=== PATIENT | male | born 1930 | race Caucasian/White ===

== ENCOUNTER 2016-02-27 13:07 | Emergency (ER) | payer MEDICARE ==
[2016-02-27] MEDS ORDERED: Lidocaine 1% 20 ML MDV ONE (13:49)
[2016-02-27] MEDS ORDERED: Clindamycin 150 MG CAP ONE (14:11)
--- NOTE | 2016-02-27 14:33 | ERRECORD ---
[facility] EMERGENCY RECORD HPI ABSCESS (23:03 JLOY) CHIEF COMPLAINT: Patient presents for evaluation of swelling, Patient presents for evaluation of pain, Patient presents for evaluation of Pt with a swelling on his back x 6 months. Increased size, redness, and pain x few days. HISTORIAN: History provided by patient, History provided by patient's family. LOCATION: Symptoms are localized. TIME COURSE: Gradual onset of symptoms, Symptoms are worsening. ASSOCIATED WITH: No associated chills, No associated drainage, No associated fever, No associated nausea, No associated proximal streaking, No associated warmth. COMPLICATING FACTORS: No complicating factors for wound healing. EXACERBATED BY: Patient's condition exacerbated by nothing. RELIEVED BY: Patient's condition relieved by nothing. TETANUS: Tetanus status up to date. ROS (23:03 JLOY) CONSTITUTIONAL: Historian denies chills, denies fever. GI: Historian denies nausea, denies vomiting. SKIN: Historian reports induration. PAST MEDICAL HISTORY MEDICAL HISTORY: Past medical history includes cardiac history, angina, Past medical history includes history of hypertension, which has been treated, Past medical history includes history of malignancy, primary site colon, treated with surgery, Notes: ARTHRITIS, Past medical history includes cardiac history, coronary artery disease, Past medical history includes history of hyperlipidemia, high cholesterol,. Past medical history includes cardiac history, angina, Past medical history includes history of hypertension, which has been treated, Past medical history includes history of malignancy, primary site colon, treated with surgery, Notes: ARTHRITIS, Past medical history includes cardiac history, coronary artery disease, Past medical history includes history of hyperlipidemia, high cholesterol,. (13:29 MCBE) MALE SURGICAL HISTORY: Surgical history of coronary artery bypass graft surgery 1999, COLON RESECTION, hernia repair x2. Defib (2009), Surgical history of coronary artery bypass graft surgery 1999, COLON RESECTION, hernia repair x2. Defib (2009), Surgical history of coronary artery bypass graft surgery 1999, COLON RESECTION, hernia repair x2. Defibrilator replaced 2015- Dr. Jean. (13:29 MCBE) SOCIAL HISTORY: Patient drinks socially, rarely, Patient denies drug use, Patient is a former tobacco user. (13:29 MCBE) NOTES: Nursing records reviewed, Agree with nursing records. (23:05 JLOY) KNOWN ALLERGIES penicillin G sodium &a-1R&a+25V*p+0X*y4434S*c202B*c15G*c2P*p-0X&a-25V&a+1R Name: Diaz Garcia : 1930 M85 MedRec: [id number] AcctNum: [id number] Prepared: Teresa Feb 27, 2016 23:10 by Interface Page 1 of 3 pMD [facility] EMERGENCY RECORD Penicillins (Unconfirmed) CURRENT MEDICATIONS (13:25 MCBE) Calcium 600: TABLET : Strength - 600 mg (1,500 mg) : ORAL Patient Dose: 1 tab(s) Oral once a day. Miralax: POWDER (GRAM) : Strength - 17 gram/dose : ORAL Patient Dose: 17 g Oral once a day. lisinopril: TABLET : Strength - 10 mg : ORAL Patient Dose: 10 mg Oral 2 times a day. finasteride: TABLET : Strength - 5 mg : ORAL Patient Dose: 5 mg Oral once a day. PARoxetine HCl: TABLET : Strength - 20 mg : ORAL Patient Dose: 20 mg Oral once a day. carvedilol: TABLET : Strength - 12.5 mg : ORAL Patient Dose: 6.25 mg Oral 2 times a day.1/2 TAB ORAL TWICE DAILY. simvastatin: TABLET : Strength - 40 mg : ORAL Patient Dose: 40 mg Oral once a day (in the evening).1/2 PILL IN PM. Lasix: TABLET : Strength - 40 mg : ORAL Patient Dose: 0.5 tab(s) Oral once a day (in the morning). Aspir-81: TABLET, DELAYED RELEASE (ENTERIC COATED) : Strength - 81 mg : ORAL Patient Dose: 1 tab(s) Oral once a day. VITAL SIGNS VITAL SIGNS: BP: 118/69, Pulse: 67, Resp: 18, Temp: 98.1 (Oral), Pain: 6, O2 sat: 99 on Room Air, Time: 02/27/2016 13:27. (13:27 MCBE) BP: 122/78, Pulse: 63, Resp: 18, Temp: 98.2 (Oral), Pain: 3, O2 sat: 98 on Room Air, Time: 02/27/2016 14:20. (14:20 MCBE) PHYSICAL EXAM (23:04 [facility]) CONSTITUTIONAL: Vital signs reviewed, Patient appears non toxic, Patient alert and oriented to person, place and time. RESPIRATORY CHEST: Respiratory exam included findings of no respiratory distress, Breath sounds clear, No wheezing, No rales, No rhonchi. CARDIOVASCULAR: Cardiovascular exam included findings of heart rate regular rate and rhythm, Heart sounds normal. BACK: Back exam included findings of, Large fluctuant mass right mid back. Mild erythema. Minimal TTP. No warmth. 3cm across. &a-1R&a+25V*p+0X*h3588H*c202B*c15G*c2P*p-0X&a-25V&a+1R Name: Diaz Garcia : 1930 85 MedRec: [id number] AcctNum: [id number] Prepared: Teresa Feb 27, 2016 23:10 by Interface Page 2 of 3 pMD [facility] EMERGENCY RECORD NEURO: [place] coma scale 15, Neuro exam findings include patient oriented to person, place and time, Speech normal. SKIN: Skin exam included findings of skin warm, dry, and normal in color. PSYCHIATRIC: Normal affect. MEDICATION ADMINISTRATION SUMMARY Drug Name: clindamycin HCl, Dose Ordered: 300 mg, Route: Oral, Status: Given, Time: 14:16 02/27/2016, Detailed record available in Medication Service section. PROBLEM LIST No recorded problems DIAGNOSIS (14:10 LAYNE) FINAL: PRIMARY: LOCALIZD SWELLING M[place] & LUMP TRUNK. PRESCRIPTION (14:08 LAYNE) clindamycin HCl: CAPSULE : 300 mg : ORAL : Quantity: 300 Unit: mg Route: ORAL Schedule: 3 times a day Dispense: 7 days May substitute. Refills: No Refills . NOTES: No Refills. DISPOSITION PATIENT: Disposition Type: Discharge, Disposition: *Discharge Home. (14:10 LAYNE) Patient left the department. (14:22 ANA) Lloyd: LAYNE=MD Ramirez, Malcom PEREZ=Fabi Joe &a-1R&a+25V*p+0X*b8082P*c202B*c15G*c2P*p-0X&a-25V&a+1R Name: Diaz Garcia : 1930 M MedRec: [id number] AcctNum: [id number] Prepared: Teresa Feb 27, 2016 23:10 by Interface Page 3 of 3 pMD MTDD
--- NOTE | 2016-02-27 14:38 | PICIS ---
[facility] EMERGENCY RECORD TRIAGE (WedFeb 27, 2016 13:24 MCBE) TRIAGE NOTES: patient reports having a boil for about 6 months. has been worsened in the past week or so. (WedFeb 27, 2016 13:24 MCBE) PATIENT: NAME: Diaz Garcia, AGE: 85, GENDER: male, : [id number], TIME OF GREET: WedFeb 27, 2016 13:08, PREFERRED LANGUAGE: Icelandic, ETHNICITY: Not or , ECODE BILLING MAP: [facility], SSN: [id number], Zip Code: [address], KG WEIGHT: 74.84, PHONE: , , , PERSON ID: [id number]. (WedFeb 27, 2016 13:24 MCBE) COMPLAINT: POSSIBLE BACK ABSCESS. (WedFeb 27, 2016 13:24 MCBE) ADMISSION: URGENCY: 4 Non Urgent, ADMISSION SOURCE: Home, TRANSPORT: CAR, BED: TRIAGE. (WedFeb 27, 2016 13:24 MCBE) IMMUNIZATIONS: Flu vaccine up to date, Tetanus immunization up to date, Pneumococcal vaccine up to date. (13:29 MCBE) SIRS SCORING: Heart Rate 55-109 (0), Temp range 96.8-101.1 (0), respiratory rate 12-24 (0), Mental Status altered: no (0), Infection or Suspected Infection: No. (13:29 MCBE) TRIAGE SCREENING: Patient denies suicidal ideation, Patient denies presence of domestic violence. (13:29 MCBE) PROVIDERS: TRIAGE NURSE: Fabi Joe. (WedFeb 27, 2016 13:24 MCBE) VITAL SIGNS: BP 118/69, Pulse 67, Resp 18, Temp 98.1, (Oral), Pain 6, O2 Sat 99, on Room Air, Time 02/27/2016 13:27. (13:27 MCBE) PREVIOUS VISIT ALLERGIES: Penicillins. (WedFeb 27, 2016 13:24 MCBE) Penicillins. (13:29 MCBE) KNOWN ALLERGIES penicillin G sodium Penicillins (Unconfirmed) CURRENT MEDICATIONS (13:25 MCBE) Calcium 600: TABLET : Strength - 600 mg (1,500 mg) : ORAL Patient Dose: 1 tab(s) Oral once a day. Miralax: POWDER (GRAM) : Strength - 17 gram/dose : ORAL Patient Dose: 17 g Oral once a day. lisinopril: TABLET : Strength - 10 mg : ORAL Patient Dose: 10 mg Oral 2 times a day. finasteride: TABLET : Strength - 5 mg : ORAL Patient Dose: 5 mg Oral once a day. PARoxetine HCl: TABLET : Strength - 20 mg : ORAL Patient Dose: 20 mg Oral once a day. carvedilol: &a-1R&a+25V*p+0X*j5720T*c202B*c15G*c2P*p-0X&a-25V&a+1R Name: Diaz Garcia : 1930 M85 MedRec: [id number] AcctNum: [id number] Prepared: [facility] Feb 27, 2016 23:10 by Interface Page 1 of 6 pMD [facility] EMERGENCY RECORD TABLET : Strength - 12.5 mg : ORAL Patient Dose: 6.25 mg Oral 2 times a day.1/2 TAB ORAL TWICE DAILY. simvastatin: TABLET : Strength - 40 mg : ORAL Patient Dose: 40 mg Oral once a day (in the evening).1/2 PILL IN PM. Lasix: TABLET : Strength - 40 mg : ORAL Patient Dose: 0.5 tab(s) Oral once a day (in the morning). Aspir-81: TABLET, DELAYED RELEASE (ENTERIC COATED) : Strength - 81 mg : ORAL Patient Dose: 1 tab(s) Oral once a day. VITAL SIGNS VITAL SIGNS: BP: 118/69, Pulse: 67, Resp: 18, Temp: 98.1 (Oral), Pain: 6, O2 sat: 99 on Room Air, Time: 02/27/2016 13:27. (13:27 MCBE) BP: 122/78, Pulse: 63, Resp: 18, Temp: 98.2 (Oral), Pain: 3, O2 sat: 98 on Room Air, Time: 02/27/2016 14:20. (14:20 MCBE) NURSING ASSESSMENT: SKIN (13:30 MCBE) CONSTITUTIONAL: Complex assessment performed, Patient arrives ambulatory, Gait steady, History obtained from patient, Patient appears comfortable, Patient cooperative, Patient alert, Oriented to person, place and time, Skin warm, Skin dry, Skin normal in color, Mucous membranes pink, Mucous membranes moist, Patient is well-groomed, Patient complains of BACK PAIN, REPORTS THAT SPOT ON BACK HAS BEEN THERE FOR ABOUT 6 MONTHS. HAS SEEN PCP FOR SPOT. PCP ADVISED TO MONITOR SPOT. PATIENT REPORTS THE SPOT HAS STARTED TO CAUSE PAIN AND DISCOMFORT. PAIN: constant, SITTING UP DECREASES THE PAIN. NONVERBAL PAIN: Non-Verbal pain assessment findings include: No non-verbal complaints while at rest (0), Non-Verbal complaints not present with movement (0), Facial Grimaces not present at rest (0), Facial grimaces not present with movement (0), Bracing not present at rest (0), Bracing not present with movement (0), Restlessness not present at rest (0), Restlessness not present with movement (0), Rubbing not present at rest (0), Rubbing not present with movement (0), Result: 0. SKIN: Skin assessment findings include skin warm, Skin dry, Skin normal in color, Inspection findings include: No pressure ulcer to the shoulder, Inspection findings include no pressure ulcer to the elbow, Inspection findings include no pressure ulcers to the hip, Inspection findings include no pressure ulcer to the sacrum, Inspection findings include no pressure ulcer to the heel, Inspection findings include no pressure ulcer, Inspection findings include no pressure ulcer, Inspection findings include redness, to LEFT-MID BACK, Inspection findings include signs of infection, to LEFT-MID BACK, Inspection findings &a-1R&a+25V*p+0X*o6586L*c202B*c15G*c2P*p-0X&a-25V&a+1R Name: Diaz Garcia : 1930 M85 MedRec: [id number] AcctNum: [id number] Prepared: Teresa Feb 27, 2016 23:10 by Interface Page 2 of 6 pMD [facility] EMERGENCY RECORD include swelling, to LEFT-MID BACK. NURSING PROCEDURE: DISCHARGE NOTE (14:20 MCBE) DISCHARGE: Patient discharged to home, ambulating with walker, family driving, accompanied by other family member, Summary of Care printed/ provided, Discharge instructions given to patient, Discharge instructions given to DAUGHTER, SON, Simple or moderate discharge teaching performed, by FABI MAXWELL, EXPLAINED DISCHARGE INSTRUCTIONS. INSTRUCTED TO RETURN IF S/S WORSEN. INSTRUCTED TO COMPLETE ALL ANITBIOTICS. INFORMED PATIENT PRESCRIPTION CAN BE FILLED AT ANY PHARMACY, Prescriptions given and instructions on side effects given, Name of prescription(s) given: CLINDAMYCIN, Above person(s) verbalized understanding of discharge instructions and follow-up care, Patient treated and evaluated by physician, Notes: REMINDED THAT PATIENT NEEDS TO RETURN ON WEDNESDAY TO FOLLOW-UP. BELONGINGS: Belongings and valuables with patient upon arrival to the Emergency Department include:, Belongings and valuables with patient at time of discharge include:, hat, jacket, pants, shirt, shoes, Belongings remain with patient, Valuables remain with patient. NURSING PROCEDURE: DRESSING (14:06 BE) PATIENT IDENTIFIER: Patient actively involved in identification process, Patient's identity verified by patient stating name, Patient's identity verified by patient stating date, Patient's identity verified by hospital ID bracelet. DRESSING: Dressing indicated to promote wound healing, Dressing indicated to prevent wound complications, Simple dressing, applied, Serosanguinous drainage present, small amount, to LEFT-MID BACK. NURSING PROCEDURE: INCISION AND DRAINAGE (14:00 BE) PATIENT IDENTIFIER: Patient actively involved in identification process, Patient's identity verified by patient stating name, Patient's identity verified by patient stating date, Patient's identity verified by hospital ID bracelet. I & D: Incision and drainage indicated to promote healing, Incision and drainage indicated for pain control, Incision and drainage performed, to LEFT MID-BACK, by Dr. GUZMÁN, small amount, of purulent fluid drained, Wound culture labeled in the presence of the patient and sent to lab, Simple dressing applied, using 4x4 dressing, paced with 1/2 inch iodoform packing. ORDER DETAILS Order Name: Culture & GS, Bacterial/Wound, Status: Active, Time: 14:09 02/27/2016, User: LAYNE, - Ordered for: MD Guzmán Joshua, - Entered by: MD Guzmán Joshua - Thu Feb 27, 2016 14:09, &a-1R&a+25V*p+0X*o0200E*c202B*c15G*c2P*p-0X&a-25V&a+1R Name: Diaz Garcia : 1930 M85 MedRec: [id number] AcctNum: [id number] Prepared: WedFeb 27, 2016 23:10 by Interface Page 3 of 6 pMD [facility] EMERGENCY RECORD - Quantity: 1. MEDICATION ADMINISTRATION SUMMARY Drug Name: clindamycin HCl, Dose Ordered: 300 mg, Route: Oral, Status: Given, Time: 14:16 02/27/2016, Detailed record available in Medication Service section. MEDICATION SERVICE (14:16 [facility]) clindamycin HCl: Order: clindamycin HCl - Dose: 300 mg : Oral Ordered by: Malcom Guzmán MD Entered by: Malcom Guzmán MD [facility] Feb 27, 2016 14:07 , Acknowledged by: William Mcpherson RN [facility] Feb 27, 2016 14:11 Documented as given by: William Mcpherson RN [facility] Feb 27, 2016 14:16 Patient, Medication, Dose, Route and Time verified prior to administration. Patient appears Awake and alert- acceptable, Correct patient, time, route, dose and medication confirmed prior to administration, Patient advised of actions and side-effects prior to administration, Allergies confirmed and medications reviewed prior to administration, Patient in position of comfort, Side rails up, Cart in lowest position, Family at bedside, Call light in reach. HPI ABSCESS (23:03 [facility]) CHIEF COMPLAINT: Patient presents for evaluation of swelling, Patient presents for evaluation of pain, Patient presents for evaluation of Pt with a swelling on his back x 6 months. Increased size, redness, and pain x few days. HISTORIAN: History provided by patient, History provided by patient's family. LOCATION: Symptoms are localized. TIME COURSE: Gradual onset of symptoms, Symptoms are worsening. ASSOCIATED WITH: No associated chills, No associated drainage, No associated fever, No associated nausea, No associated proximal streaking, No associated warmth. COMPLICATING FACTORS: No complicating factors for wound healing. EXACERBATED BY: Patient's condition exacerbated by nothing. RELIEVED BY: Patient's condition relieved by nothing. TETANUS: Tetanus status up to date. ROS (23:03 [facility]) CONSTITUTIONAL: Historian denies chills, denies fever. GI: Historian denies nausea, denies vomiting. SKIN: Historian reports induration. PAST MEDICAL HISTORY MEDICAL HISTORY: Past medical history includes cardiac history, angina, Past medical history includes history of hypertension, which has been treated, Past medical history includes &a-1R&a+25V*p+0X*x4427V*c202B*c15G*c2P*p-0X&a-25V&a+1R Name: Diaz Garcia : 1930 M85 MedRec: [id number] AcctNum: [id number] Prepared: Teresa Feb 27, 2016 23:10 by Interface Page 4 of 6 pMD [facility] EMERGENCY RECORD history of malignancy, primary site colon, treated with surgery, Notes: ARTHRITIS, Past medical history includes cardiac history, coronary artery disease, Past medical history includes history of hyperlipidemia, high cholesterol,. Past medical history includes cardiac history, angina, Past medical history includes history of hypertension, which has been treated, Past medical history includes history of malignancy, primary site colon, treated with surgery, Notes: ARTHRITIS, Past medical history includes cardiac history, coronary artery disease, Past medical history includes history of hyperlipidemia, high cholesterol,. (13:29 MCBE) MALE SURGICAL HISTORY: Surgical history of coronary artery bypass graft surgery 1999, COLON RESECTION, hernia repair x2. Defib (2009), Surgical history of coronary artery bypass graft surgery 1999, COLON RESECTION, hernia repair x2. Defib (2009), Surgical history of coronary artery bypass graft surgery 1999, COLON RESECTION, hernia repair x2. Defibrilator replaced 2015- Dr. Jean. (13:29 MCBE) SOCIAL HISTORY: Patient drinks socially, rarely, Patient denies drug use, Patient is a former tobacco user. (13:29 MCBE) NOTES: Nursing records reviewed, Agree with nursing records. (23:05 JL) PHYSICAL EXAM (23:04 JL) CONSTITUTIONAL: Vital signs reviewed, Patient appears non toxic, Patient alert and oriented to person, place and time. RESPIRATORY CHEST: Respiratory exam included findings of no respiratory distress, Breath sounds clear, No wheezing, No rales, No rhonchi. CARDIOVASCULAR: Cardiovascular exam included findings of heart rate regular rate and rhythm, Heart sounds normal. BACK: Back exam included findings of, Large fluctuant mass right mid back. Mild erythema. Minimal TTP. No warmth. 3cm across. NEURO: [place] coma scale 15, Neuro exam findings include patient oriented to person, place and time, Speech normal. SKIN: Skin exam included findings of skin warm, dry, and normal in color. PSYCHIATRIC: Normal affect. EVENTS TRANSFER: Triage to Emergency Triage. (WedFeb 27, 2016 13:24 MCBE) Emergency Triage to Emergency Room -03. (13:29 JPAR) Removed from Emergency Emergency Room -03. (14:22 BE) INCISION AND DRAINAGE (23:05 JLOY) TIMEOUT: Side and/or site verified, Patient identification confirmed, Sterile procedures observed. INCISION AND DRAINAGE: Verbal consent obtained, Incision and drainage indicated for cutaneous abscess, There are no &a-1R&a+25V*p+0X*l2163C*c202B*c15G*c2P*p-0X&a-25V&a+1R Name: Diaz Garcia : 1930 M85 MedRec: [id number] AcctNum: [id number] Prepared: WedFeb 27, 2016 23:10 by Interface Page 5 of 6 pMD [facility] EMERGENCY RECORD contraindications, 1% Lidocaine without epinephrine used, 8 mLs, Incision was made over area of fluctuance, Explored for loculations, Packed with sterile gauze, Drained pus, Amount (mLs) 5-10, After procedure, wound dressed, There were no complications, Tetanus status up to date, Patient tolerated the procedure well. PROBLEM LIST No recorded problems DIAGNOSIS (14:10 [facility]) FINAL: PRIMARY: LOCALIZD SWELLING M[place] & [place] TRUNK. DISPOSITION PATIENT: Disposition Type: Discharge, Disposition: *Discharge Home. (14:10 OY) Patient left the department. (14:22 BE) INSTRUCTION (14:10 [facility]) DISCHARGE: ABSCESS, I AND D. FOLLOWUP: Annabella LEGER, SHAHZAD, Internal Medicine, [address] [place] [id number], , Follow up with Primary Care Physician in 2-3 days. PRESCRIPTION (14:08 [facility]) clindamycin HCl: CAPSULE : 300 mg : ORAL : Quantity: 300 Unit: mg Route: ORAL Schedule: 3 times a day Dispense: 7 days May substitute. Refills: No Refills . NOTES: No Refills. IMAGING (14:22 [facility]) *DISCHARGE INSTRUCTIONS RECEIPT: Image captured from scanner. *SUPPLY CHARGE SHEET: Image captured from scanner. ADMIN (23:05 LAYNE) DIGITAL SIGNATURE: MD Guzmán Joshua. Lloyd: LAYNE=MD Guzmán Joshua JPAR=HANS Mcpherson Jason MCBE=Fabi Joe &a-1R&a+25V*p+0X*i0031V*c202B*c15G*c2P*p-0X&a-25V&a+1R Name: Diaz Garcia : 1930 M85 MedRec: [id number] AcctNum: [id number] Prepared: WedFeb 27, 2016 23:10 by Interface Page 6 of 6 pMD [facility] MEDICATION RECONCILIATION You were seen in the Emergency Department on: WedFeb 27, 2016 KNOWN ALLERGIES penicillin G sodium Penicillins (Unconfirmed) MEDICATIONS GIVEN WHILE IN THE EMERGENCY DEPARTMENT clindamycin HCl - Dose: 300 milligram(s) : Oral HOME MEDICATIONS CONTINUE PRESCRIBED Aspir-81 : TABLET, DELAYED RELEASE (ENTERIC COATED) : Strength - 81 mg : ORAL Continue as prescribed Patient had been takin tab(s) Oral once a day. Calcium 600 : TABLET : Strength - 600 mg (1,500 mg) : ORAL Continue as prescribed Patient had been takin tab(s) Oral once a day. carvedilol : TABLET : Strength - 12.5 mg : ORAL Continue as prescribed Patient had been takin.25 mg Oral 2 times a day. Comment: 1/2 TAB ORAL TWICE DAILY. finasteride : TABLET : Strength - 5 mg : ORAL Continue as prescribed Patient had been takin mg Oral once a day. Lasix : TABLET : Strength - 40 mg : ORAL Continue as prescribed Patient had been takin.5 tab(s) Oral once a day (in the morning). lisinopril : TABLET : Strength - 10 mg : ORAL Continue as prescribed Patient had been takin mg Oral 2 times a day. Miralax : POWDER (GRAM) : Strength - 17 gram/dose : ORAL Continue as prescribed Patient had been takin g Oral once a day. &a-1R&a+25V*p+0X*e9942T*c202B*c15G*c2P*p-0X&a-25V&a+1R Name: Diaz Garcia : 1930 85 MedRec: [id number] AcctNum: [id number] Prepared: WedFeb 27, 2016 23:10 by Interface pMD [facility] MEDICATION RECONCILIATION PARoxetine HCl : TABLET : Strength - 20 mg : ORAL Continue as prescribed Patient had been takin mg Oral once a day. simvastatin : TABLET : Strength - 40 mg : ORAL Continue as prescribed Patient had been takin mg Oral once a day (in the evening). Comment: 1/2 PILL IN PM. PRESCRIPTIONS (1) &a-1R&a+25V*p+0X*x1336N*c202B*c15G*c2P*p-0X&a-25V&a+1R Name: Diaz Garcia : 1930 [facility] [place]: [id number] AcctNum: [id number] Prepared: WedFeb 27, 2016 23:10 by Interface pMD [facility]
== END 2016-02-27 14:19 | disposition home or self-care (01) ==
LOC: NAV ERS 13:07
DX: R22.2 Localized swelling, mass and lump, trunk (principal); I10 Essential (primary) hypertension; I25.10 Atherosclerotic heart disease of native coronary artery without angina pectoris; E78.5 Hyperlipidemia, unspecified; E78.00 Pure hypercholesterolemia, unspecified
CPT/HCPCS: 10060; 87070; 87205; J2001

== ENCOUNTER 2016-02-29 07:47 | Emergency (ER) | payer MEDICARE ==
--- NOTE | 2016-02-29 08:09 | ERRECORD ---
[facility] EMERGENCY RECORD HPI WOUND CHECK (08:02 [facility]) CHIEF COMPLAINT: Patient presents for evaluation of back wound, abscess, closed with nothing, Wound is 2 days old, Patient presents for evaluation of Pt had a large abscess I&D on his back 2 days ago. Here for packing change. Pain and swelling improved. Small drainage. No fever. HISTORIAN: History provided by patient, History provided by patient's family. LOCATION: Symptoms are localized. TIME COURSE: Symptoms are improving. ASSOCIATED WITH: No associated chills, Associated with drainage, intermittent, No associated fever, No associated proximal streaking, No associated redness. EXACERBATED BY: Patient's condition exacerbated by nothing. RELIEVED BY: Patient's condition relieved by time. ROS (08:03 JLOY) CONSTITUTIONAL: Historian denies chills, denies fever. GI: Historian denies nausea, denies vomiting. SKIN: Historian denies cellulitis. PAST MEDICAL HISTORY MEDICAL HISTORY: Past medical history includes cardiac history, angina, Past medical history includes history of hypertension, which has been treated, Past medical history includes history of malignancy, primary site colon, treated with surgery, Notes: ARTHRITIS, Past medical history includes cardiac history, coronary artery disease, Past medical history includes history of hyperlipidemia, high cholesterol,. Past medical history includes cardiac history, angina, Past medical history includes history of hypertension, which has been treated, Past medical history includes history of malignancy, primary site colon, treated with surgery, Notes: ARTHRITIS, Past medical history includes cardiac history, coronary artery disease, Past medical history includes history of hyperlipidemia, high cholesterol,. (07:55 BE) MALE SURGICAL HISTORY: Surgical history of coronary artery bypass graft surgery 1999, COLON RESECTION, hernia repair x2. Defib (2009), Surgical history of coronary artery bypass graft surgery 1999, COLON RESECTION, hernia repair x2. Defib (2009), Surgical history of coronary artery bypass graft surgery 1999, COLON RESECTION, hernia repair x2. Defibrilator replaced 2016- Dr. Jean. (07:55 BE) SOCIAL HISTORY: Patient drinks socially, rarely, Patient denies drug use, Patient is a former tobacco user. (07:55 BE) NOTES: Nursing records reviewed, Agree with nursing records. (08:05 JLOY) KNOWN ALLERGIES penicillin G sodium Penicillins (Unconfirmed) &a-1R&a+25V*p+0X*v5424C*c202B*c15G*c2P*p-0X&a-25V&a+1R Name: Diaz Garcia : 1930 M86 MedRec: [id number] AcctNum: [id number] Prepared: Sat Feb 29, 2016 08:13 by Interface Page 1 of 3 pMD [facility] EMERGENCY RECORD CURRENT MEDICATIONS (07:51 [facility]) Calcium 600: TABLET : Strength - 600 mg (1,500 mg) : ORAL Patient Dose: 1 tab(s) Oral once a day. Miralax: POWDER (GRAM) : Strength - 17 gram/dose : ORAL Patient Dose: 17 g Oral once a day. lisinopril: TABLET : Strength - 10 mg : ORAL Patient Dose: 10 mg Oral 2 times a day. finasteride: TABLET : Strength - 5 mg : ORAL Patient Dose: 5 mg Oral once a day. PARoxetine HCl: TABLET : Strength - 20 mg : ORAL Patient Dose: 20 mg Oral once a day. carvedilol: TABLET : Strength - 12.5 mg : ORAL Patient Dose: 6.25 mg Oral 2 times a day.1/2 TAB ORAL TWICE DAILY. simvastatin: TABLET : Strength - 40 mg : ORAL Patient Dose: 40 mg Oral once a day (in the evening).1/2 PILL IN PM. Lasix: TABLET : Strength - 40 mg : ORAL Patient Dose: 0.5 tab(s) Oral once a day (in the morning). Aspir-81: TABLET, DELAYED RELEASE (ENTERIC COATED) : Strength - 81 mg : ORAL Patient Dose: 1 tab(s) Oral once a day. clindamycin HCl: CAPSULE : Strength - 300 mg : ORAL Patient Dose: 300 mg Oral 3 times a day. VITAL SIGNS (07:51 [facility]) VITAL SIGNS: BP: 121/68, Pulse: 75, Resp: 18, Temp: 96.0 (Oral), Pain: 5, O2 sat: 97 on Room Air, Time: 02/29/2016 07:51. PHYSICAL EXAM (08:03 [facility]) CONSTITUTIONAL: Vital signs reviewed, Patient appears non toxic, Patient alert and oriented to person, place and time. EYES: Eye exam included findings of eyelids normal to inspection, Pupils equally round and reactive to light, Conjunctiva normal. BACK: abscess s/p I&D and packing. Small serosanguinous drainage. Minimal induration. Nontender. Decreased erythema from 2 days ago. No warmth. NEURO: Duff coma scale 15, Neuro exam findings include patient oriented to person, place and time, Speech normal. SKIN: Skin exam included findings of skin warm, dry, and normal in color. &a-1R&a+25V*p+0X*b7487L*c202B*c15G*c2P*p-0X&a-25V&a+1R Name: Diaz Garcia : 1930 86 MedRec: [id number] AcctNum: [id number] Prepared: Sat Feb 29, 2016 08:13 by Interface Page 2 of 3 pMD [facility] EMERGENCY RECORD PSYCHIATRIC: Normal affect. PROBLEM LIST No recorded problems DIAGNOSIS (08:01 LAYNE) FINAL: PRIMARY: LOCALIZD SWELLING MASS & LUMP TRUNK. PRESCRIPTION No recorded prescriptions DISPOSITION PATIENT: Disposition Type: Discharge, Disposition: *Discharge Home. (08:01 LAYNE) Patient left the department. (08:13 JHOAN) Lloyd: LAYEN=MD Ramirez, Malcom STAPLES=HANS Mcpherson, William PEREZ=Fabi Joe &a-1R&a+25V*p+0X*t0402J*c202B*c15G*c2P*p-0X&a-25V&a+1R Name: Diaz Garcia : 1930 86 MedRec: [id number] AcctNum: [id number] Prepared: Sat Feb 29, 2016 08:13 by Interface Page 3 of 3 pMD MTDD
--- NOTE | 2016-02-29 08:15 | PICIS ---
[facility] EMERGENCY RECORD TRIAGE ([facility] [[email or web address] Feb 29, 2016 07:51 [facility]) TRIAGE NOTES: repacking of abscess on back. ([facility] [[email or web address] Feb 29, 2016 07:51 [facility]) PATIENT: NAME: Diaz Garcia, AGE: 86, GENDER: male, : [place] 1930, TIME OF GREET: Sat Feb 29, 2016 07:48, PREFERRED LANGUAGE: Austrian, ETHNICITY: Not or , ECODE BILLING MAP: [facility], SSN: [id number], Zip Code: [address], KG WEIGHT: 76.20, PHONE: , , , PERSON ID: [id number]. ([facility] [[email or web address] Feb 29, 2016 07:51 [facility]) COMPLAINT: ABSCESS REPACK. ([facility] [[email or web address] Feb 29, 2016 07:51 [facility]) ADMISSION: URGENCY: 4 Non Urgent, ADMISSION SOURCE: Home, TRANSPORT: CAR, BED: ER -04. ([facility] [[email or web address] Feb 29, 2016 07:51 [facility]) ASSESSMENT: Assessment: patient reports that abscess on back feels better after draining on . packing still in place. no drainage noted at this time. old dressing still applied from visit on . (07:55 [facility]) IMMUNIZATIONS: Flu vaccine up to date, Tetanus immunization up to date, Pneumococcal vaccine up to date. (07:55 [facility]) SIRS SCORING: Heart Rate 55-109 (0), Temp range 96.8-101.1 (0), respiratory rate 12-24 (0), Mental Status altered: no (0), Infection or Suspected Infection: No. (07:55 [facility]) TRIAGE SCREENING: Patient denies suicidal ideation, Patient denies presence of domestic violence. (07:55 [facility]) PROVIDERS: TRIAGE NURSE: Fabi Joe. ([facility] [[email or web address]] Feb 29, 2016 07:51 [facility]) VITAL SIGNS: BP 121/68, Pulse 75, Resp 18, Temp 96.0, (Oral), Pain 5, O2 Sat 97, on Room Air, Time 02/29/2016 07:51. (07:51 [facility]) PREVIOUS VISIT ALLERGIES: penicillin G sodium. (Sat Feb 29, 2016 07:51 [facility]) penicillin G sodium. (07:55 [facility]) KNOWN ALLERGIES penicillin G sodium Penicillins (Unconfirmed) CURRENT MEDICATIONS (07:51 [facility]) Calcium 600: TABLET : Strength - 600 mg (1,500 mg) : ORAL Patient Dose: 1 tab(s) Oral once a day. Miralax: POWDER (GRAM) : Strength - 17 gram/dose : ORAL Patient Dose: 17 g Oral once a day. lisinopril: TABLET : Strength - 10 mg : ORAL Patient Dose: 10 mg Oral 2 times a day. finasteride: TABLET : Strength - 5 mg : ORAL Patient Dose: 5 mg Oral once a day. PARoxetine HCl: &a-1R&a+25V*p+0X*q2477G*c202B*c15G*c2P*p-0X&a-25V&a+1R Name: Diaz Garcia : 1930 M86 MedRec: [id number] AcctNum: [id number] Prepared: Jerrod Feb 29, 2016 08:19 by Interface Page 1 of 5 pMD [facility] EMERGENCY RECORD TABLET : Strength - 20 mg : ORAL Patient Dose: 20 mg Oral once a day. carvedilol: TABLET : Strength - 12.5 mg : ORAL Patient Dose: 6.25 mg Oral 2 times a day.1/2 TAB ORAL TWICE DAILY. simvastatin: TABLET : Strength - 40 mg : ORAL Patient Dose: 40 mg Oral once a day (in the evening).1/2 PILL IN PM. Lasix: TABLET : Strength - 40 mg : ORAL Patient Dose: 0.5 tab(s) Oral once a day (in the morning). Aspir-81: TABLET, DELAYED RELEASE (ENTERIC COATED) : Strength - 81 mg : ORAL Patient Dose: 1 tab(s) Oral once a day. clindamycin HCl: CAPSULE : Strength - 300 mg : ORAL Patient Dose: 300 mg Oral 3 times a day. VITAL SIGNS (07:51 [facility]) VITAL SIGNS: BP: 121/68, Pulse: 75, Resp: 18, Temp: 96.0 (Oral), Pain: 5, O2 sat: 97 on Room Air, Time: 02/29/2016 07:51. NURSING ASSESSMENT: SKIN (08:00 [facility]) SKIN: Skin assessment findings include skin warm, Skin dry, Skin normal in color, Inspection findings include: No pressure ulcer to the shoulder, Inspection findings include no pressure ulcer to the elbow, Inspection findings include no pressure ulcers to the hip, Inspection findings include no pressure ulcer to the sacrum, Inspection findings include no pressure ulcer to the heel, Inspection findings include no pressure ulcer, Inspection findings include no pressure ulcer, Inspection findings include redness, to left mid back, Inspection findings include signs of infection, Notes: abscess is healing appropriately. NURSING PROCEDURE: DISCHARGE NOTE (08:08 JPAR) DISCHARGE: Patient discharged to home, ambulating with walker, family driving, accompanied by other family member, Summary of Care printed/ provided, Patient requested and was provided an electronic copy of Discharge Instructions, Transition record given to patient, Discharge instructions given to patient, Discharge instructions given to Daughter, Simple or moderate discharge teaching performed, Follow up with Dr. Leger this week for repacking., Medication reconciliation form given, Above person(s) verbalized understanding of discharge instructions and follow-up care, Patient treated and evaluated by physician. BELONGINGS: Belongings and valuables with patient at time of discharge include:, Belongings remain with patient, Valuables remain with patient. &a-1R&a+25V*p+0X*i4371C*c202B*c15G*c2P*p-0X&a-25V&a+1R Name: Diaz Garcia : 1930 M86 MedRec: [id number] AcctNum: [id number] Prepared: Sat Feb 29, 2016 08:19 by Interface Page 2 of 5 pMD [facility] EMERGENCY RECORD SAFETY: Side rails up, Cart/Stretcher in lowest position, Family at bedside, Call light within reach, Hospital ID band on. NURSING PROCEDURE: WOUND CARE (08:00 JPAR) PATIENT IDENTIFIER: Patient actively involved in identification process, Patient's identity verified by patient stating name, Patient's identity verified by patient stating date, Patient's identity verified by hospital ID bracelet, Patient's identity verified by family member. TIMEOUT: Prior to procedure, correct patient verified by, Correct procedure verified, Correct site verified, Correct equipment utilized, Timeout not performed due to emergent nature of procedure. WOUND CARE: Wound care indicated for wound debridement and cleansing, Wound care indicated for preparing wound for repair, Wound care indicated to promote healing, Wound site: Middle back, Last tetanus shot received less than 5 years ago. FOLLOW-UP: After procedure, simple dressing applied, using 4x4 dressing, using telfa pad dressing, wrapped with 3 inch conform bandage, After procedure, on a scale 0-10 patient rates pain as 3, After procedure, capillary refill less than 2 seconds, After procedure, distal circulation intact, After procedure, distal motor intact, After procedure, distal sensation intact, After procedure, distal pulses present, Notes: MD repacks with 1 inch Iodorform, Telfa reinforced with 4x4's and secured with surgical tape. SAFETY: Side rails up, Cart/Stretcher in lowest position, Family at bedside, Call light within reach, Hospital ID band on. ORDER DETAILS Order Name: chart element #1, Status: Active, Time: 08:00 02/29/2016, User: System, - Ordered for: MD Guzmán Joshua, - Entered by: HANS Mcpherson Jason - Jerrod Feb 29, 2016 08:00, - Quantity: 1, Order Name: chart element #4, Status: Active, Time: 08:00 02/29/2016, User: System, - Ordered for: MD Guzmán Joshua, - Entered by: HANS Mcpherson Jason - Sat Feb 29, 2016 08:00, - Quantity: 1. HPI WOUND CHECK (08:02 [facility]) CHIEF COMPLAINT: Patient presents for evaluation of back wound, abscess, closed with nothing, Wound is 2 days old, Patient presents for evaluation of Pt had a large abscess I&D on his back 2 days ago. Here for packing change. Pain and swelling improved. Small drainage. No fever. HISTORIAN: History provided by patient, History provided by patient's family. LOCATION: Symptoms are localized. TIME COURSE: Symptoms are improving. ASSOCIATED WITH: No associated chills, Associated with &a-1R&a+25V*p+0X*y4333J*c202B*c15G*c2P*p-0X&a-25V&a+1R Name: Diaz Garcia : 1930 M86 MedRec: [id number] AcctNum: [id number] Prepared: Sat Feb 29, 2016 08:19 by Interface Page 3 of 5 pMD [facility] EMERGENCY RECORD drainage, intermittent, No associated fever, No associated proximal streaking, No associated redness. EXACERBATED BY: Patient's condition exacerbated by nothing. RELIEVED BY: Patient's condition relieved by time. ROS (08:03 [facility]) CONSTITUTIONAL: Historian denies chills, denies fever. GI: Historian denies nausea, denies vomiting. SKIN: Historian denies cellulitis. PAST MEDICAL HISTORY MEDICAL HISTORY: Past medical history includes cardiac history, angina, Past medical history includes history of hypertension, which has been treated, Past medical history includes history of malignancy, primary site colon, treated with surgery, Notes: ARTHRITIS, Past medical history includes cardiac history, coronary artery disease, Past medical history includes history of hyperlipidemia, high cholesterol,. Past medical history includes cardiac history, angina, Past medical history includes history of hypertension, which has been treated, Past medical history includes history of malignancy, primary site colon, treated with surgery, Notes: ARTHRITIS, Past medical history includes cardiac history, coronary artery disease, Past medical history includes history of hyperlipidemia, high cholesterol,. (07:55 BE) MALE SURGICAL HISTORY: Surgical history of coronary artery bypass graft surgery 1999, COLON RESECTION, hernia repair x2. Defib (2009), Surgical history of coronary artery bypass graft surgery 1999, COLON RESECTION, hernia repair x2. Defib (2009), Surgical history of coronary artery bypass graft surgery 1999, COLON RESECTION, hernia repair x2. Defibrilator replaced 2016- Dr. Jean. (07:55 BE) SOCIAL HISTORY: Patient drinks socially, rarely, Patient denies drug use, Patient is a former tobacco user. (07:55 BE) NOTES: Nursing records reviewed, Agree with nursing records. (08:05 [facility]) PHYSICAL EXAM (08:03 [facility]) CONSTITUTIONAL: Vital signs reviewed, Patient appears non toxic, Patient alert and oriented to person, place and time. EYES: Eye exam included findings of eyelids normal to inspection, Pupils equally round and reactive to light, Conjunctiva normal. BACK: abscess s/p I&D and packing. Small serosanguinous drainage. Minimal induration. Nontender. Decreased erythema from 2 days ago. No warmth. NEURO: Keven coma scale 15, Neuro exam findings include patient oriented to person, place and time, Speech normal. SKIN: Skin exam included findings of skin warm, dry, and normal in color. PSYCHIATRIC: Normal affect. &a-1R&a+25V*p+0X*g0579W*c202B*c15G*c2P*p-0X&a-25V&a+1R Name: Diaz Garcia : 1930 M86 MedRec: [id number] AcctNum: [id number] Prepared: Sat Feb 29, 2016 08:19 by Interface Page 4 of 5 pMD [facility] EMERGENCY RECORD EVENTS TRANSFER: Triage to Emergency Emergency Room -04. (Sat Feb 29, 2016 07:51 [facility]) Removed from Emergency Emergency Room -04. (08:13 JPAR) WOUND CHECK (08:05 JLOY) WOUND CHECK: Side and/or site verified, Patient identification confirmed, Sterile procedures observed, Verbal consent obtained, Wound check indicated for scheduled evaluation, Wound check to abscess performed, to back, Wound not closed, Wound age 2 days, Serosanguinous drainage present, Patient tolerated the procedure well, Packing removed and new packing placed. PROBLEM LIST No recorded problems DIAGNOSIS (08:01 JLOY) FINAL: PRIMARY: LOCALIZD SWELLING MASS & LUMP TRUNK. DISPOSITION PATIENT: Disposition Type: Discharge, Disposition: *Discharge Home. (08:01 JLOY) Patient left the department. (08:13 JPAR) INSTRUCTION (08:02 JLOY) DISCHARGE: ABSCESS, I AND D. FOLLOWUP: Annabella LEGER, SHAHZAD, Internal Medicine, [address] [place] [id number], , Follow up with Primary Care Physician in 2-3 days. SPECIAL: Follow up with Dr. Leger in the next few days to have the wound repacked. PRESCRIPTION No recorded prescriptions IMAGING *SUPPLY CHARGE SHEET: Image captured from scanner. (08:06 JPAR) *DISCHARGE INSTRUCTIONS RECEIPT: Image captured from scanner. (08:09 JPAR) ADMIN DIGITAL SIGNATURE: MD Guzmán Joshua. (08:05 JLOY) HANS Mcpherson Jason. (08:12 JPAR) Lloyd: LAYNE=MD Guzmán Joshua JPAR=HANS Mcpherson Jason MCBE=Fabi Joe &a-1R&a+25V*p+0X*j5880E*c202B*c15G*c2P*p-0X&a-25V&a+1R Name: Diaz Garcia : 1930 86 MedRec: [id number] AcctNum: [id number] Prepared: Sat Feb 29, 2016 08:19 by Interface Page 5 of 5 pMD [facility] MEDICATION RECONCILIATION You were seen in the Emergency Department on: Sat Feb 29, 2016 KNOWN ALLERGIES penicillin G sodium Penicillins (Unconfirmed) HOME MEDICATIONS CONTINUE PRESCRIBED Aspir-81 : TABLET, DELAYED RELEASE (ENTERIC COATED) : Strength - 81 mg : ORAL Continue as prescribed Patient had been takin tab(s) Oral once a day. Calcium 600 : TABLET : Strength - 600 mg (1,500 mg) : ORAL Continue as prescribed Patient had been takin tab(s) Oral once a day. carvedilol : TABLET : Strength - 12.5 mg : ORAL Continue as prescribed Patient had been takin.25 mg Oral 2 times a day. Comment: 1/2 TAB ORAL TWICE DAILY. clindamycin HCl : CAPSULE : Strength - 300 mg : ORAL Continue as prescribed Patient had been takin mg Oral 3 times a day. finasteride : TABLET : Strength - 5 mg : ORAL Continue as prescribed Patient had been takin mg Oral once a day. Lasix : TABLET : Strength - 40 mg : ORAL Continue as prescribed Patient had been takin.5 tab(s) Oral once a day (in the morning). lisinopril : TABLET : Strength - 10 mg : ORAL Continue as prescribed Patient had been takin mg Oral 2 times a day. Miralax : POWDER (GRAM) : Strength - 17 gram/dose : ORAL Continue as prescribed Patient had been takin g Oral once a day. &a-1R&a+25V*p+0X*h9891C*c202B*c15G*c2P*p-0X&a-25V&a+1R Name: Diaz Garcia : 1930 M86 MedRec: [id number] AcctNum: [id number] Prepared: Sat Feb 29, 2016 08:19 by Interface pMD [facility] - [facility] MEDICATION RECONCILIATION PARoxetine HCl : TABLET : Strength - 20 mg : ORAL Continue as prescribed Patient had been takin mg Oral once a day. simvastatin : TABLET : Strength - 40 mg : ORAL Continue as prescribed Patient had been takin mg Oral once a day (in the evening). Comment: 1/2 PILL IN PM. &a-1R&a+25V*p+0X*l5372N*c202B*c15G*c2P*p-0X&a-25V&a+1R Name: Diaz Garcai : 1930 M86 MedRec: [id number] AcctNum: [id number] Prepared: Sat Feb 29, 2016 08:19 by Interface Kain ESCOBAR
== END 2016-02-29 08:08 | disposition home or self-care (01) ==
LOC: NAV ERS 07:47
DX: R22.2 Localized swelling, mass and lump, trunk (principal); I25.119 Atherosclerotic heart disease of native coronary artery with unspecified angina pectoris; E78.5 Hyperlipidemia, unspecified; E78.00 Pure hypercholesterolemia, unspecified; I10 Essential (primary) hypertension; Z87.891 Personal history of nicotine dependence
CPT/HCPCS: 99282

== ENCOUNTER 2016-03-02 12:37 | Emergency (ER) | payer MEDICARE ==
--- NOTE | 2016-03-02 13:37 | ERRECORD ---
[facility] EMERGENCY RECORD HPI WOUND CHECK (13:43 PMYE) CHIEF COMPLAINT: Patient presents for evaluation of back wound, abscess. HISTORIAN: History provided by patient, History provided by patient's family. LOCATION: Symptoms are localized. SEVERITY: Maximum severity of symptoms moderate, Currently symptoms are mild. TIME COURSE: Symptoms are improving. ASSOCIATED WITH: No associated symptoms, 86 y/o male s/p I&D of abscess w/ recent change in abx to Clinda presents for wound recheck. Pt and staff note significant improvement in symptoms. EXACERBATED BY: Patient's condition exacerbated by nothing. RELIEVED BY: Patient's condition relieved by nothing. ROS (13:45 PMYE) CONSTITUTIONAL: Negative constitutional review of systems, Historian denies chills, denies fatigue, denies fever. EYES: Negative eye review of systems, Historian denies eye pain, denies eye redness. ENT: Negative ears, nose, throat review of systems, Historian denies dysphasia, denies otalgia, denies sore throat. CARDIOVASCULAR: Negative cardiovascular review of systems, Historian denies chest pain, denies dyspnea on exertion, denies syncope. RESPIRATORY: Negative respiratory review of systems, Historian denies cough, denies shortness of breath, denies wheezing. GI: Negative gastrointestinal review of systems, Historian denies abdominal pain, denies nausea, denies vomiting. MUSCULOSKELETAL: Negative musculoskeletal review of systems, Historian denies back pain, denies neck pain. SKIN: Negative skin review of systems, Historian denies rash. NEUROLOGIC: Negative neurologic review of systems, Historian denies confusion, denies headache, denies paresthesias. PSYCHIATRIC: Negative psychiatric review of systems, Historian denies alcohol abuse, denies drug abuse, denies homicidal ideation, denies suicidal ideation. PAST MEDICAL HISTORY (13:02 JPAR) MEDICAL HISTORY: Past medical history includes cardiac history, angina, Past medical history includes history of hypertension, which has been treated, Past medical history includes history of malignancy, primary site colon, treated with surgery, Notes: ARTHRITIS, Past medical history includes cardiac history, coronary artery disease, Past medical history includes history of hyperlipidemia, high cholesterol,. Past medical history includes cardiac history, angina, Past medical history includes history of hypertension, which has been treated, Past medical history includes history of malignancy, primary site colon, treated with surgery, Notes: ARTHRITIS, Past medical history includes cardiac history, coronary artery disease, Past medical history includes history of &a-1R&a+25V*p+0X*d5038T*c202B*c15G*c2P*p-0X&a-25V&a+1R Name: Diaz Garcia : 1930 M86 MedRec: [id number] AcctNum: [id number] Prepared: WedMar 02, 2016 18:07 by Interface Page 1 of 4 pMD [facility] EMERGENCY RECORD hyperlipidemia, high cholesterol,. MALE SURGICAL HISTORY: Surgical history of coronary artery bypass graft surgery 1999, COLON RESECTION, hernia repair x2. Defib (2009), Surgical history of coronary artery bypass graft surgery 1999, COLON RESECTION, hernia repair x2. Defib (2009), Surgical history of coronary artery bypass graft surgery 1999, COLON RESECTION, hernia repair x2. Defibrilator replaced 2015- Dr. Jean. SOCIAL HISTORY: Patient drinks socially, rarely, Patient denies drug use, Patient is a former tobacco user. KNOWN ALLERGIES penicillin G sodium (Unconfirmed) Penicillins CURRENT MEDICATIONS (12:54 JPAR) Calcium 600: TABLET : Strength - 600 mg (1,500 mg) : ORAL Patient Dose: 1 tab(s) Oral once a day. Miralax: POWDER (GRAM) : Strength - 17 gram/dose : ORAL Patient Dose: 17 g Oral once a day. lisinopril: TABLET : Strength - 10 mg : ORAL Patient Dose: 10 mg Oral 2 times a day. finasteride: TABLET : Strength - 5 mg : ORAL Patient Dose: 5 mg Oral once a day. PARoxetine HCl: TABLET : Strength - 20 mg : ORAL Patient Dose: 20 mg Oral once a day. carvedilol: TABLET : Strength - 12.5 mg : ORAL Patient Dose: 6.25 mg Oral 2 times a day.1/2 TAB ORAL TWICE DAILY. simvastatin: TABLET : Strength - 40 mg : ORAL Patient Dose: 40 mg Oral once a day (in the evening).1/2 PILL IN PM. Lasix: TABLET : Strength - 40 mg : ORAL Patient Dose: 0.5 tab(s) Oral once a day (in the morning). Aspir-81: TABLET, DELAYED RELEASE (ENTERIC COATED) : Strength - 81 mg : ORAL Patient Dose: 1 tab(s) Oral once a day. clindamycin HCl: CAPSULE : Strength - 300 mg : ORAL Patient Dose: 300 mg Oral 3 times a day. VITAL SIGNS (12:49 JPAR) &a-1R&a+25V*p+0X*z2353G*c202B*c15G*c2P*p-0X&a-25V&a+1R Name: Diaz Garcia : 1930 M86 MedRec: [id number] AcctNum: [id number] Prepared: WedMar 02, 2016 18:07 by Interface Page 2 of 4 pMD [facility] EMERGENCY RECORD VITAL SIGNS: BP: 144/70, Pulse: 62, Resp: 16, Temp: 98.5 (Oral), Pain: 0, O2 sat: 95, Time: 03/02/2016 12:49. PHYSICAL EXAM (13:45 PMYE) CONSTITUTIONAL: Vital signs reviewed, Patient afebrile, Pulse normal, Blood pressure normal, Respiratory rate normal. HEAD: Head exam normal, Head exam included findings of head atraumatic, normocephalic. EYES: Eye exam normal, Eye exam included findings of eyelids normal to inspection, Pupils equally round and reactive to light, Extraocular muscles intact. ENT: ENT exam normal, Pharynx exam normal, Uvula exam normal, Tonsil exam normal. NECK: Neck exam normal, Neck exam included findings of normal range of motion, Trachea midline. RESPIRATORY CHEST: Respiratory and chest exam normal, No wheezing, No rales, No rhonchi. CARDIOVASCULAR: Cardiovascular assessment normal, Cardiovascular exam included findings of heart rate regular rate and rhythm, Heart sounds normal. ABDOMEN MALE: Abdominal exam normal, Abdominal exam included findings of abdomen nontender, Bowel sounds normal. BACK: Back exam normal, lower back approx. 4 cm of erythema w/ no induration or fluctulance. Packing in place an when removed no purulence identified. NEURO: Neuro exam normal, Neuro exam findings include patient oriented to person, place and time, Elysian coma scale 15, Speech normal. SKIN: Skin exam included findings of skin warm, dry, and normal in color. PSYCHIATRIC: Psychiatric exam included findings of patient oriented to person place and time, Normal affect. DOCTOR NOTES (13:47 PMYE) TEXT: Abscess improving. Packing removed. Recommended warm soaks and continue abx. Dressing applied. As PCP f/u on Wed this week. PROBLEM LIST No recorded problems DIAGNOSIS (13:23 PMYE) FINAL: PRIMARY: abscess recheck. PRESCRIPTION No recorded prescriptions DISPOSITION PATIENT: Disposition Type: Discharge, Disposition: *Discharge Home. (13:25 PMYE) &a-1R&a+25V*p+0X*p7982K*c202B*c15G*c2P*p-0X&a-25V&a+1R Name: Diaz Garcia Bridgett : 1930 [facility] MedRec: [id number] AcctNum: [id number] Prepared: WedMar 02, 2016 18:07 by Interface Page 3 of 4 pMD [facility] EMERGENCY RECORD Patient left the department. (13:51 IRIS) Lloyd: JHOAN=HANS Mcpherson Jason PMYE=DO Martinez Paul &a-1R&a+25V*p+0X*s9930A*c202B*c15G*c2P*p-0X&a-25V&a+1R Name: Jose Diaz Bridgett : 1930 M86 MedRec: [id number] AcctNum: [id number] Prepared: WedMar 02, 2016 18:07 by Interface Page 4 of 4 pMD MTDD
--- NOTE | 2016-03-02 13:45 | PICIS ---
[facility] EMERGENCY RECORD TRIAGE (WedMar 02, 2016 12:53 JPAR) TRIAGE NOTES: Wound recheck, Apt. Wednesday with Indigo. (WedMar 02, 2016 12:53 JPAR) PATIENT: NAME: Diaz Garcia, AGE: 86, GENDER: male, : [id number], TIME OF GREET: WedMar 02, 2016 12:37, PREFERRED LANGUAGE: Angolan, ETHNICITY: Not or , ECODE BILLING MAP: [facility], SSN: [id number], Zip Code: [address], KG WEIGHT: 76.20, PHONE: , , , PERSON ID: [id number], PCP: Annabella LEGER LUKE. (WedMar 02, 2016 12:53 JPAR) COMPLAINT: WOUND CHECK. (WedMar 02, 2016 12:53 JPAR) ADMISSION: URGENCY: 5 Fast Track, ADMISSION SOURCE: Home, TRANSPORT: CAR, BED: TRIAGE. (WedMar 02, 2016 12:53 JPAR) ASSESSMENT: Assessment: Wound check, Symptoms began 5-6 days, Symptoms began 6 days ago. (13:02 JPAR) SIRS SCORING: Heart Rate 55-109 (0), Temp range 96.8-101.1 (0), respiratory rate 12-24 (0), Mental Status altered: no (0), Infection or Suspected Infection: No. (13:02 JPAR) TRIAGE SCREENING: Patient denies suicidal ideation, Patient denies presence of domestic violence. (13:02 JPAR) PROVIDERS: TRIAGE NURSE: William Mcpherson RN. (WedMar 02, 2016 12:53 JPAR) VITAL SIGNS: BP 144/70, Pulse 62, Resp 16, Temp 98.5, (Oral), Pain 0, O2 Sat 95, Time 03/02/2016 12:49. (12:49 JPAR) PREVIOUS VISIT ALLERGIES: penicillin G sodium. (WedMar 02, 2016 12:53 JPAR) penicillin G sodium. (13:02 JPAR) KNOWN ALLERGIES penicillin G sodium (Unconfirmed) Penicillins CURRENT MEDICATIONS (12:54 JPAR) Calcium 600: TABLET : Strength - 600 mg (1,500 mg) : ORAL Patient Dose: 1 tab(s) Oral once a day. Miralax: POWDER (GRAM) : Strength - 17 gram/dose : ORAL Patient Dose: 17 g Oral once a day. lisinopril: TABLET : Strength - 10 mg : ORAL Patient Dose: 10 mg Oral 2 times a day. finasteride: TABLET : Strength - 5 mg : ORAL Patient Dose: 5 mg Oral once a day. PARoxetine HCl: TABLET : Strength - 20 mg : ORAL Patient Dose: 20 mg Oral once a day. carvedilol: TABLET : Strength - 12.5 mg : ORAL &a-1R&a+25V*p+0X*q4493K*c202B*c15G*c2P*p-0X&a-25V&a+1R Name: Diaz Garcia : 1930 M86 MedRec: [id number] AcctNum: [id number] Prepared: WedMar 02, 2016 18:14 by Interface Page 1 of 5 pMD [facility] EMERGENCY RECORD Patient Dose: 6.25 mg Oral 2 times a day.1/2 TAB ORAL TWICE DAILY. simvastatin: TABLET : Strength - 40 mg : ORAL Patient Dose: 40 mg Oral once a day (in the evening).1/2 PILL IN PM. Lasix: TABLET : Strength - 40 mg : ORAL Patient Dose: 0.5 tab(s) Oral once a day (in the morning). Aspir-81: TABLET, DELAYED RELEASE (ENTERIC COATED) : Strength - 81 mg : ORAL Patient Dose: 1 tab(s) Oral once a day. clindamycin HCl: CAPSULE : Strength - 300 mg : ORAL Patient Dose: 300 mg Oral 3 times a day. VITAL SIGNS (12:49 JPAR) VITAL SIGNS: BP: 144/70, Pulse: 62, Resp: 16, Temp: 98.5 (Oral), Pain: 0, O2 sat: 95, Time: 03/02/2016 12:49. NURSING ASSESSMENT: SKIN (12:54 JPAR) CONSTITUTIONAL: Patient arrives ambulatory, Gait steady, History obtained from patient, Patient appears comfortable, Patient cooperative, Patient alert, Oriented to person, place and time, Skin warm, Skin dry, Skin normal in color, Mucous membranes pink, Mucous membranes moist, Patient complains of Wound recheck, middle back, I&D 4-5 days ago, was repacked in ER 2 days ago. SKIN: Skin assessment findings include skin warm, Skin dry, Skin normal in color, Inspection findings include redness, to Mid back around Abscess, Inspection findings include swelling, to mid back around abscess. SAFETY: Side rails up, Cart/Stretcher in lowest position, Family at bedside, Call light within reach, Hospital ID band on. NURSING PROCEDURE: NURSE NOTES (13:04 JPAR) NURSES NOTES: Notes: Same dressing that was put on 2 days ago was removed by RN and family advised to keep site cleaned and change dressing daily to prevent further infection and prevent wound from contamination. NURSING PROCEDURE: WOUND CARE (13:35 JPAR) PATIENT IDENTIFIER: Patient actively involved in identification process, Patient's identity verified by patient stating name, Patient's identity verified by patient stating date, Patient's identity verified by hospital ID bracelet, Patient's identity verified by family member. WOUND CARE: Wound care indicated to promote healing, Wound site: Mid back, Cause of wound: I& D 4 days ago/ Abscess, Wound cleansed with Betadine, Last tetanus shot received less than 5 years ago. FOLLOW-UP: After procedure, simple dressing applied, using 4x4 &a-1R&a+25V*p+0X*a5232R*c202B*c15G*c2P*p-0X&a-25V&a+1R Name: Diaz Garcia : 1930 M86 MedRec: [id number] AcctNum: [id number] Prepared: WedMar 02, 2016 18:14 by Interface Page 2 of 5 pMD [facility] EMERGENCY RECORD dressing, using telfa pad dressing. SAFETY: Side rails up, Cart/Stretcher in lowest position, Family at bedside, Call light within reach, Hospital ID band on. HPI WOUND CHECK (13:43 PMYE) CHIEF COMPLAINT: Patient presents for evaluation of back wound, abscess. HISTORIAN: History provided by patient, History provided by patient's family. LOCATION: Symptoms are localized. SEVERITY: Maximum severity of symptoms moderate, Currently symptoms are mild. TIME COURSE: Symptoms are improving. ASSOCIATED WITH: No associated symptoms, 86 y/o male s/p I&D of abscess w/ recent change in abx to Clinda presents for wound recheck. Pt and staff note significant improvement in symptoms. EXACERBATED BY: Patient's condition exacerbated by nothing. RELIEVED BY: Patient's condition relieved by nothing. ROS (13:45 PMYE) CONSTITUTIONAL: Negative constitutional review of systems, Historian denies chills, denies fatigue, denies fever. EYES: Negative eye review of systems, Historian denies eye pain, denies eye redness. ENT: Negative ears, nose, throat review of systems, Historian denies dysphasia, denies otalgia, denies sore throat. CARDIOVASCULAR: Negative cardiovascular review of systems, Historian denies chest pain, denies dyspnea on exertion, denies syncope. RESPIRATORY: Negative respiratory review of systems, Historian denies cough, denies shortness of breath, denies wheezing. GI: Negative gastrointestinal review of systems, Historian denies abdominal pain, denies nausea, denies vomiting. MUSCULOSKELETAL: Negative musculoskeletal review of systems, Historian denies back pain, denies neck pain. SKIN: Negative skin review of systems, Historian denies rash. NEUROLOGIC: Negative neurologic review of systems, Historian denies confusion, denies headache, denies paresthesias. PSYCHIATRIC: Negative psychiatric review of systems, Historian denies alcohol abuse, denies drug abuse, denies homicidal ideation, denies suicidal ideation. PAST MEDICAL HISTORY (13:02 JPAR) MEDICAL HISTORY: Past medical history includes cardiac history, angina, Past medical history includes history of hypertension, which has been treated, Past medical history includes history of malignancy, primary site colon, treated with surgery, Notes: ARTHRITIS, Past medical history includes cardiac history, coronary artery disease, Past medical history includes history of hyperlipidemia, high cholesterol,. Past medical history includes cardiac history, angina, Past medical history includes history of &a-1R&a+25V*p+0X*z8401O*c202B*c15G*c2P*p-0X&a-25V&a+1R Name: Diaz Garcia : 1930 M86 MedRec: [id number] AcctNum: [id number] Prepared: WedMar 02, 2016 18:14 by Interface Page 3 of 5 pMD [facility] EMERGENCY RECORD hypertension, which has been treated, Past medical history includes history of malignancy, primary site colon, treated with surgery, Notes: ARTHRITIS, Past medical history includes cardiac history, coronary artery disease, Past medical history includes history of hyperlipidemia, high cholesterol,. MALE SURGICAL HISTORY: Surgical history of coronary artery bypass graft surgery 1999, COLON RESECTION, hernia repair x2. Defib (2009), Surgical history of coronary artery bypass graft surgery 1999, COLON RESECTION, hernia repair x2. Defib (2009), Surgical history of coronary artery bypass graft surgery 1999, COLON RESECTION, hernia repair x2. Defibrilator replaced 2016- Dr. Jean. SOCIAL HISTORY: Patient drinks socially, rarely, Patient denies drug use, Patient is a former tobacco user. PHYSICAL EXAM (13:45 PMYE) CONSTITUTIONAL: Vital signs reviewed, Patient afebrile, Pulse normal, Blood pressure normal, Respiratory rate normal. HEAD: Head exam normal, Head exam included findings of head atraumatic, normocephalic. EYES: Eye exam normal, Eye exam included findings of eyelids normal to inspection, Pupils equally round and reactive to light, Extraocular muscles intact. ENT: ENT exam normal, Pharynx exam normal, Uvula exam normal, Tonsil exam normal. NECK: Neck exam normal, Neck exam included findings of normal range of motion, Trachea midline. RESPIRATORY CHEST: Respiratory and chest exam normal, No wheezing, No rales, No rhonchi. CARDIOVASCULAR: Cardiovascular assessment normal, Cardiovascular exam included findings of heart rate regular rate and rhythm, Heart sounds normal. ABDOMEN MALE: Abdominal exam normal, Abdominal exam included findings of abdomen nontender, Bowel sounds normal. BACK: Back exam normal, lower back approx. 4 cm of erythema w/ no induration or fluctulance. Packing in place an when removed no purulence identified. NEURO: Neuro exam normal, Neuro exam findings include patient oriented to person, place and time, Keven coma scale 15, Speech normal. SKIN: Skin exam included findings of skin warm, dry, and normal in color. PSYCHIATRIC: Psychiatric exam included findings of patient oriented to person place and time, Normal affect. EVENTS TRANSFER: Triage to Emergency Triage. (WedMar 02, 2016 12:53 JPAR) Emergency Triage to Emergency Room -04. (12:54 JPAR) Removed from Emergency Emergency Room -04. (13:51 JPAR) &a-1R&a+25V*p+0X*s3951M*c202B*c15G*c2P*p-0X&a-25V&a+1R Name: Diaz Garcia : 1930 M86 MedRec: [id number] AcctNum: [id number] Prepared: WedMar 02, 2016 18:14 by Interface Page 4 of 5 pMD [facility] EMERGENCY RECORD DOCTOR NOTES (13:47 PMYE) TEXT: Abscess improving. Packing removed. Recommended warm soaks and continue abx. Dressing applied. As PCP f/u on Wed this week. PROBLEM LIST No recorded problems DIAGNOSIS (13:23 PMYE) FINAL: PRIMARY: abscess recheck. DISPOSITION PATIENT: Disposition Type: Discharge, Disposition: *Discharge Home. (13:25 PMYE) Patient left the department. (13:51 JPAR) INSTRUCTION (13:24 PMYE) DISCHARGE: ABSCESS, PACKING REMOVAL. FOLLOWUP: Annabella LEGER, SHAHZAD, Internal Medicine, [address] [place] [id number], , Follow up with Primary Care Physician in 1-2 days. SPECIAL: Follow-up with your PCP. Continue your antibiotics as previously prescribed. PRESCRIPTION No recorded prescriptions IMAGING *DISCHARGE INSTRUCTIONS RECEIPT: Image captured from scanner. (13:48 JPAR) *SUPPLY CHARGE SHEET: Image captured from scanner. (13:49 JPAR) ADMIN DIGITAL SIGNATURE: DO Martinez Paul. (13:25 PMYE) HANS Mcpherson Jason. (13:50 JPAR) DO Martinez Paul. (17:59 PMYE) Lloyd: JPAR=HANS Mcpherson Jason PMYE=DO Martinez Paul &a-1R&a+25V*p+0X*x9147W*c202B*c15G*c2P*p-0X&a-25V&a+1R Name: Diaz Garcia : 1930 M86 MedRec: [id number] AcctNum: [id number] Prepared: WedMar 02, 2016 18:14 by Interface Page 5 of 5 pMD MTDD
== END 2016-03-02 13:44 | disposition home or self-care (01) ==
LOC: NAV ERS 12:37
DX: Z48.01 Encounter for change or removal of surgical wound dressing (principal); I10 Essential (primary) hypertension; I25.10 Atherosclerotic heart disease of native coronary artery without angina pectoris; E78.5 Hyperlipidemia, unspecified; E78.00 Pure hypercholesterolemia, unspecified; M19.90 Unspecified osteoarthritis, unspecified site; Z79.82 Long term (current) use of aspirin; Z79.899 Other long term (current) drug therapy
CPT/HCPCS: 99282

== ENCOUNTER 2016-04-01 17:41 | Inpatient (IN) | payer MEDICARE ==
[2016-04-01 17:57] VITALS: BMI 23.3
[2016-04-01] MEDS ORDERED: Loperamide HCl 2 MG CAP PO PRN (18:38)
[2016-04-01] MEDS ORDERED: Docusate Sodium 100 MG/10 ML UDCUP PO PRN (18:42)
[2016-04-01] MEDS ORDERED: Milk Of Magnesia 30 ML UDCUP PO PRN (18:42)
[2016-04-01] MEDS: Famotidine 20 MG TAB PO SCH (21:04)
[2016-04-01] MEDS: Carvedilol 6.25 MG TAB PO SCH (21:04)
[2016-04-01] MEDS: Lisinopril 10 MG TAB PO SCH (21:04)
[2016-04-01] MEDS: Acetaminophen 325 MG TAB PO PRN (21:05)
[2016-04-02] MEDS: Aspirin 325 MG TAB PO SCH (08:25)
[2016-04-02] MEDS: Atorvastatin Calcium 10 MG TAB PO SCH (08:25)
[2016-04-02] MEDS: Calcium Carbonate + Vit D 1 TAB PO SCH (08:26)
[2016-04-02] MEDS: Famotidine 20 MG TAB PO SCH ×2 (08:26→20:49)
[2016-04-02] MEDS: Finasteride 5 MG TAB PO SCH (08:26)
[2016-04-02] MEDS: Carvedilol 6.25 MG TAB PO SCH ×2 (08:26→20:49)
[2016-04-02] MEDS: PARoxetine 20 MG TAB PO SCH (08:27)
[2016-04-02] MEDS: Potassium Chloride 10 MEQ TAB PO SCH (08:27)
[2016-04-02] MEDS: Polyethylene Glycol 3350 17 GM Packet PO SCH (08:27)
[2016-04-02] MEDS: Acetaminophen 325 MG TAB PO PRN (08:27)
[2016-04-02 11:36] LABS: Anion Gap 10 mmol/L (10-20); BUN (Urea Nitrogen) 28 mg/dL (8.4-25.7); Calc. Creatinine Clearance 55 mL/min (70-130); Calcium 8.2 mg/dL (7.8-10.44); Carbon Dioxide 26 mmol/L (23-31); Chloride 109 mmol/L (98-107); Estimated GFR-MDRD 72
[2016-04-02] MEDS: HYDROcodone/Acetaminophen 5/325 mg Tablet PO PRN (20:49)
[2016-04-02] MEDS: Lisinopril 10 MG TAB PO SCH (20:50)
--- NOTE | 2016-04-03 02:33 | HP ---
DATE OF ADMISSION: 04/01/2016 HISTORY OF PRESENT ILLNESS: The patient is a very pleasant 86-year-old white male, living [place] for the last several years despite following problems of ischemic cardiomyopathy , instability with recurrent falls and a history of ventricular tachycardia, status post defibrillat or. He was admitted to the hospital this time because of the fall secondary to balance and inabilit y to call someone because of poor vision to finding his cell phone . He was brought into [facility] where he was found to have broken nose, no other fractures. Negative CT scan as he was unable to m aintain ADLs at home and is admitted to the skilled unit to continue therapy. The patient did have a problem with some acute on chronic kidney disease and has had his Lasix discontinue. He has had n o problems with shortness breath or edema or chest pain. He denies any headaches, generalized aches and pains other than his arms and shoulders. PAST MEDICAL HISTORY: Remarkable as mentioned above for hypertension, hyperlipidemia, cancer of the colon, recurrent constipation and diarrhea, significant anxiety and depression. PAST SURGICAL HISTORY: Positive for partial colectomy 8 years ago, hernia repair x2 and a defibrill ator placed in 1999. REVIEW OF SYSTEMS: HEENT: He denies any change in vision or hearing, but has gradually decreasing vision. He has gi technician nically decreasing hearing loss. He has no hoarseness or sore throat. PULMONARY: Denies cough, sputum production, pneumonia, asthma, tuberculosis. CARDIOVASCULAR: He has no history of chest pain recently, but has had a history of chest pain in th e past, found to have ischemic cardiomyopathy requiring a defibrillator because of low EF and ventri cular tachycardia. This is not discharged my knowledge. He also has a history of hypertension, hyp erlipidemia, benign prostatic hypertrophy, most recent echocardiogram was done 1 year ago and showed him to have ejection fraction of 15-20%. GASTROINTESTINAL: He denies nausea and vomiting. He had above-mentioned history of constipation co ntrolled with MiraLax. GENITOURINARY: He has mild decreased stream for which he takes finasteride 5 mg daily as he is unab le to tolerate agonist because of orthostatic hypotension. MUSCULOSKELETAL: He has chronic pain in his knees and ankles and has supposedly been using a walker , but did not using during this fall. CURRENT MEDICATIONS: On admission included atorvastatin 10 daily, carvedilol 6.25 twice daily, reny steride 5 daily, lisinopril 10 nightly, Paxil 20 nightly, Protonix 40 daily, MiraLax 17 gram every o ther day, potassium 10 mEq daily, aspirin 325 daily. PHYSICAL EXAMINATION: GENERAL: Shows him to be an elderly white male in no acute distress, oriented x3 and cooperative. VITAL SIGNS: Shows blood pressure of 157/74, respirations 20, pulse 58, afebrile. HEENT: Pupils are equal, round, and react to light and accommodation. Sclerae are anicteric. Conj unctivae are pale. Oral mucous membranes well hydrated. Multiple bruises over the nose, periorbita l area. Teeth are intact. NECK: Supple. There are no nodes or masses. JVP is not elevated. LUNGS: Clear. CARDIAC: Regular rhythm. PMI in the fifth intercostal space 1 cm left midclavicular. There is an AICD in place. ABDOMEN: Soft, nontender with no masses or organomegaly. SKIN/EXTREMITIES: Display no edema, clubbing or cyanosis. NEUROLOGIC: Intact. LABORATORIES: Today showed potassium of 4.1, creatinine 0.88, BUN 25. Off of Lasix, his BNP is 102 . Cardiac enzymes are normal. Hematocrit is 32, hemoglobin 10.9, white count 4900. ASSESSMENT AND PLAN: An 86-year-old white male with history of ischemic cardiomyopathy, low EF 20%, presents with recurrent falls and has had a contusion of his face and significant weakness and was found on the floor over 18 hours without moving. He is significantly weak at this time and has diff use aches and pains, but no specific chest pain or shortness of breath. He was only found to have a fracture of his nose. He is eating well. He did have his Lasix were discontinue because of acute renal failure and has been monitored closely with normal renal function at this time and no Edema wi th fluid restriction. PLAN: Continue PT, OT or speech therapy, did have some coughing after eating. Restart all medicati ons except furosemide and monitor basic metabolic profile.
--- NOTE | 2016-04-03 05:31 | PRG ---
DATE OF SERVICE: 04/03/2016 SUBJECTIVE: The patient is an 86-year-old white male living at home alone with a history of ischemi c cardiomyopathy and recurrent falls, who has fallen again and had been found on the floor after 12- 18 hours and is severely weak and he has had negative x-rays and is here for physical therapy. He h as been cooperating with therapy. He did get up and walk 5 feet yesterday with assistance. He did have some problems with orthostatic blood pressure with no symptoms. His blood pressure at this time shows a blood pressure 171/81, temperature 97.9, pulse 62, respirati ons 20, O2 sats 97%. Lungs are clear. Cardiac examination shows regular rhythm. Skin and extremit ies showed no edema. Laboratories did show that his creatinine was normal off of furosemide that was stopped during his l ast hospitalization. Neurological does show the patient has a slow, shuffling gait with no tremor. Does have some mask f acies. No confusion and is concern from PT he may have some Parkinson's symptoms and on no treatmen t. ASSESSMENT: Slowly improving deconditioning with recurrent falls, ischemic cardiomyopathy with orth ostasis, but no documented symptoms with therapy, possible Parkinson's disease. PLAN: 1. Continue to monitor vital signs off of furosemide. 2. Continue physical therapy. 3. Consider neurological consult and possible treatment for Parkinson's disease if symptoms should not improve.
[2016-04-03] MEDS: Finasteride 5 MG TAB PO SCH (08:15)
[2016-04-03] MEDS: PARoxetine 20 MG TAB PO SCH (08:15)
[2016-04-03] MEDS: Famotidine 20 MG TAB PO SCH ×2 (08:15→20:07)
[2016-04-03] MEDS: Potassium Chloride 10 MEQ TAB PO SCH (08:15)
[2016-04-03] MEDS: Carvedilol 6.25 MG TAB PO SCH ×2 (08:15→20:06)
[2016-04-03] MEDS: Atorvastatin Calcium 10 MG TAB PO SCH (08:15)
[2016-04-03] MEDS: Aspirin 325 MG TAB PO SCH (08:15)
[2016-04-03] MEDS: Calcium Carbonate + Vit D 1 TAB PO SCH (08:15)
[2016-04-03] MEDS: Lisinopril 10 MG TAB PO SCH (20:06)
[2016-04-03] MEDS: HYDROcodone/Acetaminophen 5/325 mg Tablet PO PRN (20:07)
[2016-04-04] MEDS: Polyethylene Glycol 3350 17 GM Packet PO SCH (09:24)
[2016-04-04] MEDS: Calcium Carbonate + Vit D 1 TAB PO SCH (09:25)
[2016-04-04] MEDS: Carvedilol 6.25 MG TAB PO SCH ×2 (09:25→20:49)
[2016-04-04] MEDS: Atorvastatin Calcium 10 MG TAB PO SCH (09:25)
[2016-04-04] MEDS: Famotidine 20 MG TAB PO SCH ×2 (09:25→20:49)
[2016-04-04] MEDS: Finasteride 5 MG TAB PO SCH (09:25)
[2016-04-04] MEDS: Aspirin 325 MG TAB PO SCH (09:25)
[2016-04-04] MEDS: PARoxetine 20 MG TAB PO SCH (09:25)
[2016-04-04] MEDS: Potassium Chloride 10 MEQ TAB PO SCH (09:26)
[2016-04-04] MEDS: HYDROcodone/Acetaminophen 5/325 mg Tablet PO PRN (20:49)
[2016-04-04] MEDS: Lisinopril 10 MG TAB PO SCH (20:49)
--- NOTE | 2016-04-05 05:35 | PRG ---
DATE OF SERVICE: 04/05/2016 SUBJECTIVE: The patient is resting well in bed, no complaints of shortness of breath, headache, diz ziness, eating well. Still very weak and complaining of pain in his face site of trauma. OBJECTIVE: Vital Signs: Shows his blood pressure is 155/75, pulse 53, temperature 95.1, respiratio ns 16, O2 sats 94%. HEENT: Face shows multiple contusions or ecchymoses. Lungs are clear. Cardia c examination shows regular rhythm. Abdomen is soft and nontender. Skin and extremities showed no edema. LABORATORY DATA: Sodium 141, potassium 4.3, chloride 109, bicarbonate 26, BUN 28, creatinine 0.99, glucose 121. ASSESSMENT: Resolving contusion of the face and fracture of the nose; stable ischemic cardiomyopath y; persistent severe deconditioning, slowly improving. PLAN: Continue physical therapy. Continue occupational therapy, await results of speech therapist. Continue to hold diuretic and monitor edema.
--- NOTE | 2016-04-05 06:21 | PRG ---
DATE OF SERVICE: 04/05/2016 SUBJECTIVE: The patient is resting, but awakens easily and has no complaints except for problems wi th his chronic decreased vision, soreness in his face, but has slept well. He is eating well, coope rating well with therapy, having no cough after eating. OBJECTIVE: Speech therapist who feels the patient is safe for all food, but does require 24-hour as sistance at home because of his deconditioning and weakness. Patient did cooperate with physical th erapy and able to walk 30 feet very slowly. He complaints of lightheadedness and dizziness, although stable vital signs. No orthostasis. Vital signs did show blood pressure 155/71 this morning, temp erature is 96.7, pulse 60, respirations 20, O2 sats 94%. Lungs are clear. Cardiac examination show s regular rhythm. Skin and extremities showed no edema. ASSESSMENT: 1. Slowly improving deconditioning, stable vital signs. No evidence of aspiration. 2. Resolving contusion of the face. 3. Stable ischemic cardiomyopathy. PLAN: Continue PT, OT, repeat base met profile in the a.m. Continue to monitor for fluid retention .
[2016-04-05] MEDS: Famotidine 20 MG TAB PO SCH ×2 (08:27→20:54)
[2016-04-05] MEDS: Aspirin 325 MG TAB PO SCH (08:28)
[2016-04-05] MEDS: Potassium Chloride 10 MEQ TAB PO SCH (08:28)
[2016-04-05] MEDS: PARoxetine 20 MG TAB PO SCH (08:28)
[2016-04-05] MEDS: Finasteride 5 MG TAB PO SCH (08:28)
[2016-04-05] MEDS: Carvedilol 6.25 MG TAB PO SCH ×2 (08:28→20:54)
[2016-04-05] MEDS: Calcium Carbonate + Vit D 1 TAB PO SCH (08:28)
[2016-04-05] MEDS: Atorvastatin Calcium 10 MG TAB PO SCH (08:28)
[2016-04-05] MEDS: Acetaminophen 325 MG TAB PO PRN (17:24)
[2016-04-05] MEDS: Lisinopril 10 MG TAB PO SCH (20:54)
[2016-04-05] MEDS: HYDROcodone/Acetaminophen 5/325 mg Tablet PO PRN (20:54)
[2016-04-06] MEDS: Polyethylene Glycol 3350 17 GM Packet PO SCH (09:07)
[2016-04-06] MEDS: Atorvastatin Calcium 10 MG TAB PO SCH (09:07)
[2016-04-06] MEDS: PARoxetine 20 MG TAB PO SCH (09:07)
[2016-04-06] MEDS: Potassium Chloride 10 MEQ TAB PO SCH (09:07)
[2016-04-06] MEDS: Aspirin 325 MG TAB PO SCH (09:07)
[2016-04-06] MEDS: Finasteride 5 MG TAB PO SCH (09:07)
[2016-04-06] MEDS: Famotidine 20 MG TAB PO SCH ×2 (09:08→20:33)
[2016-04-06] MEDS: Calcium Carbonate + Vit D 1 TAB PO SCH (09:08)
[2016-04-06] MEDS: Carvedilol 6.25 MG TAB PO SCH ×2 (09:08→20:33)
[2016-04-06] MEDS: Acetaminophen 325 MG TAB PO PRN (09:10)
[2016-04-06] MEDS: Lisinopril 10 MG TAB PO SCH (20:40)
[2016-04-07] MEDS: Acetaminophen 325 MG TAB PO PRN ×2 (03:06→09:08)
[2016-04-07] MEDS: Aspirin 325 MG TAB PO SCH (09:02)
[2016-04-07] MEDS: Carvedilol 6.25 MG TAB PO SCH ×2 (09:04→20:30)
[2016-04-07] MEDS: Calcium Carbonate + Vit D 1 TAB PO SCH (09:04)
[2016-04-07] MEDS: Finasteride 5 MG TAB PO SCH (09:07)
[2016-04-07] MEDS: Famotidine 20 MG TAB PO SCH ×2 (09:07→20:30)
[2016-04-07] MEDS: PARoxetine 20 MG TAB PO SCH (09:07)
[2016-04-07] MEDS: Potassium Chloride 10 MEQ TAB PO SCH (09:08)
[2016-04-07] MEDS: Atorvastatin Calcium 10 MG TAB PO SCH (09:10)
[2016-04-07 10:07] LABS: #Basophils 0.1 thou/uL (0.0-0.2); #Eosinphils 0.1 thou/uL (0.0-0.7); #Monocytes 0.3 thou/uL (0.11-0.59); #Neutrophils 3.7 thou/uL (1.40-6.50); %Basophils 1.2 % (0.0-1.0); %Eosinophils 2.6 % (0.0-10.0); %Lymphocytes 18.8 % (21.0-51.0); %Monocytes 6.3 % (0.0-10.0); Hematocrit 34.3 % (42.0-52.0); Mean Platelet Volume 6.2 fL (7.4-10.4); Red Blood Cell (RBC) Count 3.66 mill/uL (4.70-6.10); White Blood Cell (WBC) Count 5.2 thou/uL (4.8-10.8)
[2016-04-07 10:46] LABS: ALT (SGPT) 10 U/L (0-55); AST (SGOT) 12 U/L (5-34); Alkaline Phosphatase 69 U/L (40-150); Anion Gap 9 mmol/L (10-20); BUN (Urea Nitrogen) 33 mg/dL (8.4-25.7); Bilirubin, Total 0.7 mg/dL (0.2-1.2); Calc. Creatinine Clearance 54 mL/min (70-130); Calcium 8.2 mg/dL (7.8-10.44); Carbon Dioxide 24 mmol/L (23-31); Chloride 112 mmol/L (98-107); Estimated GFR-MDRD 71; Globulin 2.4 g/dL (2.4-3.5)
[2016-04-07] MEDS: HYDROcodone/Acetaminophen 5/325 mg Tablet PO PRN (20:30)
[2016-04-08] MEDS: PARoxetine 20 MG TAB PO SCH (09:34)
[2016-04-08] MEDS: Finasteride 5 MG TAB PO SCH (09:34)
[2016-04-08] MEDS: Calcium Carbonate + Vit D 1 TAB PO SCH (09:34)
[2016-04-08] MEDS: Famotidine 20 MG TAB PO SCH ×2 (09:34→20:31)
[2016-04-08] MEDS: Atorvastatin Calcium 10 MG TAB PO SCH (09:34)
[2016-04-08] MEDS: Polyethylene Glycol 3350 17 GM Packet PO SCH (09:35)
[2016-04-08] MEDS: Potassium Chloride 10 MEQ TAB PO SCH (09:35)
[2016-04-08] MEDS: Carvedilol 6.25 MG TAB PO SCH ×2 (09:35→20:31)
[2016-04-08] MEDS: Aspirin 325 MG TAB PO SCH (09:35)
--- NOTE | 2016-04-08 18:44 | PRG ---
MEDICAL PROGRESS NOTE DATE OF SERVICE: 04/06/2016 SUBJECTIVE: The patient is lying in the bed, very weak. States he feels better with minimal pain. No shortness of breath, but is unable to get out of bed without assistance. OBJECTIVE: VITALS SIGNS: His blood pressure is 110/60, temperature is 97.8, pulse 63, respirations 18 and O2 s ats 96%. LUNGS: Clear. CARDIAC: Regular rhythm. ABDOMEN: Soft and nontender. SKIN AND EXTREMITIES: Showed no edema, clubbing or cyanosis. There are multiple ecchymoses over th e face. NEUROLOGIC: Showed some rigidity with minimal pill-rolling tremor. ASSESSMENT: Resolving deconditioning, stable ischemic cardiomyopathy, persistent cogwheel rigidity and bradykinesia, possibly due to progressive Parkinson disease. PLAN: Continue PT. Continue to monitor for signs of exacerbation of congestive heart failure. Con tinue nutritional support. Repeat base met profile and CBC in the a.m.
--- NOTE | 2016-04-08 19:18 | PRG ---
DATE OF SERVICE: 04/07/2016 SUBJECTIVE: The patient is visiting [id number], eating, well-appearing to get up and work with therapy, but still unable to transfer without assistance. OBJECTIVE: His sodium is 141, potassium 4.2, chloride 112, bicarbonate 24, BUN 33, creatinine 1.0, glucose 109, calcium 8.2, total bilirubin 0.7. AST 12, ALT 10, alkaline phosphatase 659. Total pro tein 5.0, albumin 2.6, globulin 2.4. White count 5200, hematocrit 34, hemoglobin 11.2. Vital signs showed blood pressure is 106/53, pulse 64, O2 sats 96%, afebrile. He did have orthostatic changes 88/55 with ambulation. Lungs are clear. Cardiac examination shows regular rhythm. Intake and outp ut shows 1010 in and multiple diapers. Physical therapy states the patient did cooperate with thera py was very weak, able to walk 20 feet, 40 feet and 40 feet; problems with coordination and requirin g less breaks and requiring cueing to keep him safe. ASSESSMENT: Slowly improving deconditioning, persistent mild cognitive defects, stable ischemic car diomyopathy, compensated congestive heart failure. PLAN: Continue PT/OT. We will discuss Parkinson's treatments with family. We will continue to mon itor for signs of orthostatic hypotension with ischemic cardiomyopathy.
--- NOTE | 2016-04-08 19:32 | PRG ---
DATE OF SERVICE: 04/08/2016 SUBJECTIVE: The patient is sitting up, eating well, good appetite, increased strength, but still un able to transfer without assistance, although he did walk today and did work with therapy. The arleth ent is asking about possible Parkinson's treatment. OBJECTIVE: His blood pressure is low today at 90/56, it was up to 169/85 this morning and pulse is 66. Lungs are clear. Cardiac examination shows regular rhythm. Abdomen is soft and nontender. Th ere is an S4. Patient has his Flomax and lisinopril discontinued. He is only on carvedilol. ASSESSMENT: 1. Orthostatic hypotension possibly due to weakness or ischemic cardiomyopathy. 2. 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 3. Improving appetite. 4. Mild cognitive deficit. PLAN: Start on Sinemet 10-100 three times daily to monitor response and finally we will give 6 hour s routine while awake. Continue physical therapy and occupational therapy. Continue to monitor ort hostatic symptoms, may need to cut the carvedilol dose down.
[2016-04-09] MEDS: Carvedilol 6.25 MG TAB PO SCH ×2 (09:09→20:34)
[2016-04-09] MEDS: Famotidine 20 MG TAB PO SCH ×2 (09:10→20:34)
[2016-04-09] MEDS: Calcium Carbonate + Vit D 1 TAB PO SCH (09:10)
[2016-04-09] MEDS: Atorvastatin Calcium 10 MG TAB PO SCH (09:10)
[2016-04-09] MEDS: Finasteride 5 MG TAB PO SCH (09:10)
[2016-04-09] MEDS: PARoxetine 20 MG TAB PO SCH (09:10)
[2016-04-09] MEDS: Potassium Chloride 10 MEQ TAB PO SCH (09:10)
[2016-04-09] MEDS: Aspirin 325 MG TAB PO SCH (09:10)
[2016-04-09] MEDS ORDERED: Carbidopa/Levodopa 10-100 mg Tablet PO SCH (12:30)
[2016-04-09] MEDS: Carbidopa/Levodopa 10-100 mg Tablet PO SCH ×2 (15:00→20:33)
[2016-04-10] MEDS: Aspirin 325 MG TAB PO SCH (08:43)
[2016-04-10] MEDS: Carbidopa/Levodopa 10-100 mg Tablet PO SCH ×3 (08:44→20:22)
[2016-04-10] MEDS: Calcium Carbonate + Vit D 1 TAB PO SCH (08:44)
[2016-04-10] MEDS: Atorvastatin Calcium 10 MG TAB PO SCH (08:44)
[2016-04-10] MEDS: Finasteride 5 MG TAB PO SCH (08:44)
[2016-04-10] MEDS: Famotidine 20 MG TAB PO SCH ×2 (08:44→20:22)
[2016-04-10] MEDS: Carvedilol 6.25 MG TAB PO SCH ×2 (08:44→20:22)
[2016-04-10] MEDS: Polyethylene Glycol 3350 17 GM Packet PO SCH (08:45)
[2016-04-10] MEDS: PARoxetine 20 MG TAB PO SCH (08:45)
[2016-04-10] MEDS: Potassium Chloride 10 MEQ TAB PO SCH (08:45)
[2016-04-11 05:50] LABS: Anion Gap 10 mmol/L (10-20); BUN (Urea Nitrogen) 25 mg/dL (8.4-25.7); Calc. Creatinine Clearance 50 mL/min (70-130); Calcium 8.1 mg/dL (7.8-10.44); Carbon Dioxide 25 mmol/L (23-31); Chloride 109 mmol/L (98-107); Estimated GFR-MDRD 65
[2016-04-11] MEDS: Aspirin 325 MG TAB PO SCH (09:28)
[2016-04-11] MEDS: Potassium Chloride 10 MEQ TAB PO SCH (09:28)
[2016-04-11] MEDS: Calcium Carbonate + Vit D 1 TAB PO SCH (09:28)
[2016-04-11] MEDS: Carbidopa/Levodopa 10-100 mg Tablet PO SCH ×3 (09:28→20:55)
[2016-04-11] MEDS: Atorvastatin Calcium 10 MG TAB PO SCH (09:28)
[2016-04-11] MEDS: Famotidine 20 MG TAB PO SCH ×2 (09:28→20:55)
[2016-04-11] MEDS: PARoxetine 20 MG TAB PO SCH (09:28)
[2016-04-11] MEDS: Finasteride 5 MG TAB PO SCH (09:28)
[2016-04-11] MEDS: Carvedilol 6.25 MG TAB PO SCH ×2 (09:29→20:55)
--- NOTE | 2016-04-11 18:20 | PRG ---
DATE OF SERVICE: 04/09/2016 SUBJECTIVE: The patient is feeling better, increased strength, decreasing pain. Has just started o n Sinemet this evening and does not know whether it is infected and or not. Had no symptoms of dizz iness or weakness with therapy. OBJECTIVE: VITAL SIGNS: Blood pressure is 181/81, but then decreased to 135/68, temperature is 97.5, pulse 62, respirations 18, and O2 sats 97%. LUNGS: Clear. CARDIAC: Regular rhythm, no S4, no other gallops or murmurs. NEUROLOGICAL: Cranial nerves intact. Deep tendon reflexes 2+ and equal. There is some shuffling g ait and some bradykinesia, but no cogwheel rigidity. ASSESSMENT: Resolving deconditioning, possible Parkinson disease, stable hypertension, severe systo lic congestive heart failure with possible orthostatic hypotension with minimal symptoms. PLAN: We will start orthostatic blood pressures during therapy and routinely monitor response of Si nemet 10/100 three times daily. Continue nutritional support.
--- NOTE | 2016-04-11 19:48 | PRG ---
DATE OF SERVICE: 04/10/2016 SUBJECTIVE: Patient feels better, feels that he is improving with the Sinemet and walking better. LABORATORY DATA: Shows his sodium is 140, potassium 4.1, chloride 109, bicarbonate 25, BUN 25, crea tinine 1.08. OBJECTIVE: Vital signs show his blood pressure had decreased to 92/54, morning with a pulse of 72, O2 sats 98%, blood pressure 181/81 on lying down. Lungs were clear. Cardiac examination showed reg ular rhythm. Abdomen is soft and nontender. Neurological shows decreasing tremor and rigidity and therapy states that he seemed to be walking better with Sinemet. ASSESSMENT: 1. Improving deconditioning, possible improvement in underlying Parkinson symptom with Sinemet. 2. Persistent systolic congestive heart failure secondary to ischemic cardiomyopathy with orthostat ic hypotension, being monitored closely with no symptoms. 3. Improving nutrition, good oral intake. PLAN: Continue to address oral nutrition. Continue physical therapy. Continue to monitor all symp toms. On low dose Sinemet, I may need to increase dose, start routine orthostatic blood pressure ch ecks and monitor symptoms.
--- NOTE | 2016-04-11 19:51 | PRG ---
DATE OF SERVICE: 04/11/2016. SUBJECTIVE: The patient feels well. No complaints, feels he is eating better, rested well through the night, wants to do more therapy and anticipation of going home. OBJECTIVE: VITAL SIGNS: Blood pressure 137/63 at present, no orthostatic pain, temperature is 98, pulse 60, re spirations 18, and O2 saturation is 95%. LUNGS: Clear. CARDIAC: Regular rhythm. S4. No other gallops or murmurs. Physical therapy states that the patient is improving, appears to be benefiting from physical therap y and request continued therapy, and was maintained ADLs at this time. ASSESSMENT: Slowly improving deconditioning, still persistent inability to maintain ADLs requiring 24-hour assistance at this time. Orthostatic hypotension secondary to systolic congestive heart dulce lure, no symptoms, no evidence of acute ischemia. PLAN: Continue PT, OT, continued to monitor orthostatic blood pressure and possibly increase Sineme t dose in the next several days.
[2016-04-12] MEDS: Aspirin 325 MG TAB PO SCH (09:13)
[2016-04-12] MEDS: Carbidopa/Levodopa 10-100 mg Tablet PO SCH ×3 (09:13→21:58)
[2016-04-12] MEDS: Atorvastatin Calcium 10 MG TAB PO SCH (09:13)
[2016-04-12] MEDS: Finasteride 5 MG TAB PO SCH (09:13)
[2016-04-12] MEDS: Potassium Chloride 10 MEQ TAB PO SCH (09:13)
[2016-04-12] MEDS: PARoxetine 20 MG TAB PO SCH (09:13)
[2016-04-12] MEDS: Famotidine 20 MG TAB PO SCH ×2 (09:13→21:58)
[2016-04-12] MEDS: Carvedilol 6.25 MG TAB PO SCH ×2 (09:13→21:58)
[2016-04-12] MEDS: Calcium Carbonate + Vit D 1 TAB PO SCH (09:14)
[2016-04-12] MEDS: Polyethylene Glycol 3350 17 GM Packet PO SCH (09:14)
--- NOTE | 2016-04-12 23:35 | PRG ---
DATE OF SERVICE: 04/12/2016 SUBJECTIVE: Mr. Garcia is doing well. Denies any complaints, resting comfortably, and nursing stat e that he passed his potassium pill, intact. He is not having any diarrhea. OBJECTIVE: VITAL SIGNS: He is afebrile, heart rate is 67, respirations are 20, oxygen saturation 95%, blood pr essure is 137/63. CARDIOVASCULAR: S1, S2 plus. RESPIRATORY: Normal vesicular breath sounds. ABDOMEN: Soft, nontender, bowel sounds heard in all quadrants. EXTREMITIES: Without cyanosis or clubbing. IMPRESSION: 1. Improving deconditioning. 2. Chronic systolic congestive heart failure. 3. Hypertension. 4. Dyslipidemia. 5. Anxiety and depression. PLAN: 1. Continue current medications. 2. Recheck potassium levels and if it is low, then we will switch him to liquid potassium. 3. Physical therapy. 4. Nutritional support. 5. Continue DVT and stress ulcer prophylaxis and Dr. Sood back tonight.
[2016-04-13 05:22] LABS: #Basophils 0.1 thou/uL (0.0-0.2); #Eosinphils 0.1 thou/uL (0.0-0.7); #Lymphocytes 0.9 thou/uL (1.20-3.40); #Monocytes 0.3 thou/uL (0.11-0.59); #Neutrophils 2.8 thou/uL (1.40-6.50); %Basophils 1.4 % (0.0-1.0); %Eosinophils 3.4 % (0.0-10.0); %Lymphocytes 22.2 % (21.0-51.0); %Monocytes 7.4 % (0.0-10.0); Hematocrit 32.6 % (42.0-52.0); Mean Platelet Volume 5.8 fL (7.4-10.4); Red Blood Cell (RBC) Count 3.57 mill/uL (4.70-6.10); White Blood Cell (WBC) Count 4.2 thou/uL (4.8-10.8)
[2016-04-13 05:33] LABS: Anion Gap 11 mmol/L (10-20); BUN (Urea Nitrogen) 26 mg/dL (8.4-25.7); Calc. Creatinine Clearance 57 mL/min (70-130); Calcium 7.9 mg/dL (7.8-10.44); Carbon Dioxide 24 mmol/L (23-31); Chloride 109 mmol/L (98-107); Estimated GFR-MDRD 75
[2016-04-13] MEDS: PARoxetine 20 MG TAB PO SCH (08:58)
[2016-04-13] MEDS: Aspirin 325 MG TAB PO SCH (08:58)
[2016-04-13] MEDS: Atorvastatin Calcium 10 MG TAB PO SCH (08:58)
[2016-04-13] MEDS: Finasteride 5 MG TAB PO SCH (08:58)
[2016-04-13] MEDS: Famotidine 20 MG TAB PO SCH ×2 (08:58→21:22)
[2016-04-13] MEDS: Potassium Chloride 10 MEQ TAB PO SCH (08:58)
[2016-04-13] MEDS: Calcium Carbonate + Vit D 1 TAB PO SCH (08:58)
[2016-04-13] MEDS: Carvedilol 6.25 MG TAB PO SCH ×2 (09:02→21:22)
[2016-04-13] MEDS: Carbidopa/Levodopa 10-100 mg Tablet PO SCH ×2 (09:55→15:25)
[2016-04-13 17:20] LABS: Troponin I 0.014 ng/mL (< 0.028)
[2016-04-13] MEDS: Carbidopa/Levodopa 25-100 mg Tablet PO SCH (21:22)
--- NOTE | 2016-04-14 07:23 | PRG ---
DATE OF SERVICE: 04/13/2016 SUBJECTIVE: The patient complained of chest pain earlier today and was evaluated by the nurses, belgica cooper to have stable vital signs, but EKG was done which showed no acute changes. Cardiac enzymes were done also and the patient had no further symptoms. OBJECTIVE: Shows cardiac enzymes are normal. Sodium was 140, potassium 3.9, chloride 109, bicarbon ate 24, BUN 26, creatinine 0.95. White count 4200, hematocrit 32, hemoglobin 11. EKG showed sinus rhythm. Neurological showed persistent weakness, improving, but therapy states the patient is still exhibiting signs of Parkinson's with a shuffling gait and rigidity. ASSESSMENT: 1. Ischemic cardiomyopathy with chest pain with no evidence of acute ischemia or change in vital si gns. 2. Slowly improving conditioning, but limited by Parkinson symptoms. PLAN: Increase Sinemet 25 to 50 four times daily and monitor symptoms of ischemia. Stressed to the patient need to inform the nurses of symptoms and monitor vital signs closely during therapy.
--- NOTE | 2016-04-14 07:44 | PRG ---
DATE OF SERVICE: 04/14/2016 SUBJECTIVE: The patient feels well, lying in bed. He rested well through the night. No nausea or vomiting, no palpitations, no chest pain. He is ready to do more therapy today. OBJECTIVE: Blood pressure is 160/72, temperature 96, pulse 60, respirations 17, O2 saturation is 95 %. Lungs are clear. Cardiac examination shows slow regular rhythm. Abdomen is soft and nontender with no masses or organomegaly. Skin and extremities showed no edema, clubbing or cyanosis. Neurol ogic shows possibly decreased bradykinesia and rigidity, masked facies, no pill rolling tremor. ASSESSMENT: 1. Possible Parkinson's, slightly improving on increased Sinemet with no side effects. 2. Stable severe ischemic cardiomyopathy with no evidence of acute changes. We will monitor orthostatic blood pressure and stress to the patient the need to relay vital symptom s. Continue PT, OT continued to monitor vital signs. Continue increased Sinemet 25/250 four 4 time s daily.
[2016-04-14] MEDS: Aspirin 325 MG TAB PO SCH (08:55)
[2016-04-14] MEDS: Carvedilol 6.25 MG TAB PO SCH ×2 (08:55→21:23)
[2016-04-14] MEDS: Carbidopa/Levodopa 25-100 mg Tablet PO SCH ×4 (08:55→21:23)
[2016-04-14] MEDS: PARoxetine 20 MG TAB PO SCH (08:56)
[2016-04-14] MEDS: Potassium Chloride 10 MEQ TAB PO SCH (08:56)
[2016-04-14] MEDS: Atorvastatin Calcium 10 MG TAB PO SCH (08:56)
[2016-04-14] MEDS: Calcium Carbonate + Vit D 1 TAB PO SCH (08:56)
[2016-04-14] MEDS: Famotidine 20 MG TAB PO SCH ×2 (08:56→21:23)
[2016-04-14] MEDS: Polyethylene Glycol 3350 17 GM Packet PO SCH (08:57)
[2016-04-14] MEDS: Finasteride 5 MG TAB PO SCH (08:57)
[2016-04-15] MEDS: Potassium Chloride 10 MEQ TAB PO SCH (08:25)
[2016-04-15] MEDS: Aspirin 325 MG TAB PO SCH (08:25)
[2016-04-15] MEDS: Atorvastatin Calcium 10 MG TAB PO SCH (08:25)
[2016-04-15] MEDS: PARoxetine 20 MG TAB PO SCH (08:25)
[2016-04-15] MEDS: Carvedilol 6.25 MG TAB PO SCH ×2 (08:26→21:13)
[2016-04-15] MEDS: Carbidopa/Levodopa 25-100 mg Tablet PO SCH ×4 (08:26→21:13)
[2016-04-15] MEDS: Finasteride 5 MG TAB PO SCH (08:26)
[2016-04-15] MEDS: Famotidine 20 MG TAB PO SCH ×2 (08:26→21:13)
[2016-04-15] MEDS: Calcium Carbonate + Vit D 1 TAB PO SCH (08:26)
--- NOTE | 2016-04-16 07:59 | PRG ---
DATE OF SERVICE: 04/15/2016 SUBJECTIVE: The patient is an 86-year-old white male with a history of ischemic cardiomyopathy, rec urrent falls, possible underlying Parkinson disease who has been on increased dose of Sinemet 25 to 50 four times daily for the last 24 hours and states he feels he is getting stronger and improving w ith physical therapy. OBJECTIVE: His temperature is 96.2, pulse 62, respirations 20, O2 sats 96%, afebrile. Lungs are cl ear. Cardiac examination shows regular rhythm. No gallops or murmurs. Abdomen is soft and nontend er. Neurological shows persistent spasticity of gait and rigidity despite Sinemet. ASSESSMENT: 1. Persistent deconditioning, possibly due to Parkinson's disease. 2. Persistent ischemic cardiomyopathy with no orthostatic hypotension. 3. Minimally improving deconditioning. PLAN: After discussion with physical therapy he will qualify for another week on his Sinemet. We w ill continue physical therapy. We will however, began to schedule senior care placement with joe mead. We will monitor closely for orthostatic hypotension.
--- NOTE | 2016-04-16 08:03 | PRG ---
DATE OF SERVICE: 04/16/2016 SUBJECTIVE: The patient is lying in bed resting well. States he feels well, but did have a dizzy s ant yesterday which resolved without treatment without a fall that occurred after therapy and not a ssociated with therapy. OBJECTIVE: Shows his pulse did go down to 45, temperature is 97.5, respirations 18, O2 sats 95%, bl ood pressure 126/69. Lungs are clear. Cardiac examination shows regular rhythm. The abdomen is so ft and nontender. Skin and extremities showed healing contusions. Neurological shows persistent br adykinesia, spasticity of gait, masked facies consistent with Parkinson's disease. ASSESSMENT: 1. 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 2. Persistent deconditioning, slowly improving with Sinemet with signs of possible Parkinson diseas e. PLAN: Continue Sinemet, continue physical therapy, obtain EKG and monitor vital signs closely. Dis cuss custodial placement with family.
[2016-04-16] MEDS: Aspirin 325 MG TAB PO SCH (08:57)
[2016-04-16] MEDS: PARoxetine 20 MG TAB PO SCH (08:58)
[2016-04-16] MEDS: Calcium Carbonate + Vit D 1 TAB PO SCH (08:58)
[2016-04-16] MEDS: Polyethylene Glycol 3350 17 GM Packet PO SCH (08:58)
[2016-04-16] MEDS: Finasteride 5 MG TAB PO SCH (08:58)
[2016-04-16] MEDS: Carbidopa/Levodopa 25-100 mg Tablet PO SCH ×4 (08:58→21:48)
[2016-04-16] MEDS: Carvedilol 6.25 MG TAB PO SCH ×2 (08:58→21:49)
[2016-04-16] MEDS: Famotidine 20 MG TAB PO SCH ×2 (08:58→21:48)
[2016-04-16] MEDS: Atorvastatin Calcium 10 MG TAB PO SCH (08:58)
[2016-04-16] MEDS: Potassium Chloride 10 MEQ TAB PO SCH (08:59)
[2016-04-16] MEDS: HYDROcodone/Acetaminophen 5/325 mg Tablet PO PRN (21:48)
[2016-04-17] MEDS: Carbidopa/Levodopa 25-100 mg Tablet PO SCH ×4 (09:03→21:18)
[2016-04-17] MEDS: Aspirin 325 MG TAB PO SCH (09:03)
[2016-04-17] MEDS: PARoxetine 20 MG TAB PO SCH (09:03)
[2016-04-17] MEDS: Calcium Carbonate + Vit D 1 TAB PO SCH (09:04)
[2016-04-17] MEDS: Carvedilol 6.25 MG TAB PO SCH ×2 (09:04→21:18)
[2016-04-17] MEDS: Atorvastatin Calcium 10 MG TAB PO SCH (09:04)
[2016-04-17] MEDS: Famotidine 20 MG TAB PO SCH ×2 (09:05→21:18)
[2016-04-17] MEDS: Finasteride 5 MG TAB PO SCH (09:05)
[2016-04-17] MEDS: Potassium Chloride 10 MEQ TAB PO SCH (09:05)
[2016-04-17] MEDS: HYDROcodone/Acetaminophen 5/325 mg Tablet PO PRN (21:18)
--- NOTE | 2016-04-18 07:43 | PRG ---
DATE OF SERVICE: 04/17/2016 SUBJECTIVE: The patient is sleeping well, but appears to be getting stronger, having no chest pain or shortness of breath in the last 24 hours. OBJECTIVE: VITAL SIGNS: Shows blood pressure 143/73, temperature 96.5, pulse 60, respirations 18, and O2 sats 91%. LUNGS: Clear. CARDIAC: Shows regular rhythm. ABDOMEN: Soft and nontender. NEUROLOGICAL: Shows minimal pillrolling persistent to cogwheel rigidity. ASSESSMENT: Improving deconditioning, but possibly improving of Parkinson's disease, stable ischemi c cardiomyopathy, stable tachy-jhony syndrome status post pacemaker. PLAN: Continue PT, OT and monitor closely for signs of ischemia. Continue on Sinemet 25/100 four t imes daily.
[2016-04-18] MEDS: Polyethylene Glycol 3350 17 GM Packet PO SCH (08:55)
[2016-04-18] MEDS: Potassium Chloride 10 MEQ TAB PO SCH (08:56)
[2016-04-18] MEDS: PARoxetine 20 MG TAB PO SCH (08:56)
[2016-04-18] MEDS: Carvedilol 6.25 MG TAB PO SCH ×2 (08:56→20:51)
[2016-04-18] MEDS: Atorvastatin Calcium 10 MG TAB PO SCH (08:56)
[2016-04-18] MEDS: Finasteride 5 MG TAB PO SCH (08:56)
[2016-04-18] MEDS: Carbidopa/Levodopa 25-100 mg Tablet PO SCH ×4 (08:56→20:51)
[2016-04-18] MEDS: Famotidine 20 MG TAB PO SCH ×2 (08:56→20:50)
[2016-04-18] MEDS: Aspirin 325 MG TAB PO SCH (08:56)
[2016-04-18] MEDS: Calcium Carbonate + Vit D 1 TAB PO SCH (08:56)
--- NOTE | 2016-04-18 13:21 | PRG ---
DATE OF SERVICE: 04/18/2016. SUBJECTIVE: The patient feels well with no chest pain, shortness of breath, weakness or dizziness. States that he is walking much better and feels much stronger. Physical therapy note from giacomo mead states that the patient was minimal assist in transfer, walked 800 feet and 60 and 80 feet increme nts with resting in between, still had some occasional difficulty initiating with a stutter step, ap peared to be improving with increasing strength and still has problems with gait despite being on e Sinemet. OBJECTIVE: Blood pressure is 143/73, temperature 95.7, pulse 60, respirations 16, O2 sats 94%. Mic gs are clear. Cardiac examination shows regular rhythm. ASSESSMENT: Stable ischemic cardiomyopathy with stable vital signs. Slowly improving deconditionin g, but with persistent problems with gait with some improvement not eradication with Sinemet therapy . PLAN: Continue PT, OT. Still consider transfer to a residential for further PT next week.
[2016-04-18] MEDS: HYDROcodone/Acetaminophen 5/325 mg Tablet PO PRN (20:51)
[2016-04-19] MEDS: Aspirin 325 MG TAB PO SCH (08:47)
[2016-04-19] MEDS: Carvedilol 6.25 MG TAB PO SCH ×2 (08:47→20:28)
[2016-04-19] MEDS: Finasteride 5 MG TAB PO SCH (08:47)
[2016-04-19] MEDS: Calcium Carbonate + Vit D 1 TAB PO SCH (08:47)
[2016-04-19] MEDS: Famotidine 20 MG TAB PO SCH ×2 (08:48→20:28)
[2016-04-19] MEDS: Carbidopa/Levodopa 25-100 mg Tablet PO SCH ×4 (08:48→20:28)
[2016-04-19] MEDS: Potassium Chloride 10 MEQ TAB PO SCH (08:48)
[2016-04-19] MEDS: PARoxetine 20 MG TAB PO SCH (08:48)
[2016-04-19] MEDS: Atorvastatin Calcium 10 MG TAB PO SCH (08:48)
[2016-04-19] MEDS: HYDROcodone/Acetaminophen 5/325 mg Tablet PO PRN (20:28)
[2016-04-20 07:33] VITALS: TEMP 96.7
[2016-04-20] MEDS: Aspirin 325 MG TAB PO SCH (08:21)
[2016-04-20] MEDS: Atorvastatin Calcium 10 MG TAB PO SCH (08:21)
[2016-04-20] MEDS: Calcium Carbonate + Vit D 1 TAB PO SCH (08:21)
[2016-04-20] MEDS: Famotidine 20 MG TAB PO SCH (08:22)
[2016-04-20] MEDS: Finasteride 5 MG TAB PO SCH (08:22)
[2016-04-20] MEDS: Carvedilol 6.25 MG TAB PO SCH (08:22)
[2016-04-20] MEDS: PARoxetine 20 MG TAB PO SCH (08:22)
[2016-04-20] MEDS: Polyethylene Glycol 3350 17 GM Packet PO SCH (08:22)
[2016-04-20] MEDS: Carbidopa/Levodopa 25-100 mg Tablet PO SCH (08:22)
[2016-04-20] MEDS: Potassium Chloride 10 MEQ TAB PO SCH (08:23)
--- NOTE | 2016-04-20 09:58 | PRG ---
DATE OF SERVICE: 04/19/2016 SUBJECTIVE: The patient feels well, resting in bed, awaiting family to visit today. PHYSICAL EXAMINATION: VITAL SIGNS: Temperature is 97.5, pulse 60, respirations 18, O2 sats 96%. LUNGS: Clear. CARDIAC: Shows regular rhythm. SKIN AND EXTREMITIES: Showed no edema. ASSESSMENT: 1. Slowly improving deconditioning with persistent fall risk secondary to cognitive difficulties an d poor safety awareness. 2. Ischemic cardiomyopathy with no evidence of orthostatic hypotension or recent ischemia. PLAN: Discussed with family, probable transfer to the retirement tomorrow to continue physical th erapy and occupational therapy as an outpatient at [facility].
[2016-04-20 18:01] VITALS: BP 135/78
== END 2016-04-20 12:25 | DRG 948 ==
LOC: NAV ACUTE 17:41
PROVIDERS: ADMIT Internal Medicine; ATTEND Internal Medicine
DX: R53.1 Weakness (principal); G20 Parkinson's disease; I11.0 Hypertensive heart disease with heart failure; I50.22 Chronic systolic (congestive) heart failure; S02.2XXD Fracture of nasal bones, subsequent encounter for fracture with routine healing; W19.XXXD Unspecified fall, subsequent encounter; Z95.810 Presence of automatic (implantable) cardiac defibrillator; E78.5 Hyperlipidemia, unspecified; Z85.038 Personal history of other malignant neoplasm of large intestine; Z79.82 Long term (current) use of aspirin; I25.5 Ischemic cardiomyopathy; F41.9 Anxiety disorder, unspecified; F32.9 Major depressive disorder, single episode, unspecified; I95.1 Orthostatic hypotension
CPT/HCPCS: 36415; 80048; 80053; 82553; 84484; 85025; 87070; 87186; 87205; 97602; G8996-GN-CI; G8997-GN-CI

== ENCOUNTER 2016-05-11 07:56 | Outpatient (CLI) | payer MEDICARE ==
[2016-05-11 09:41] LABS: Calcium 8.4 mg/dL (7.8-10.44); Chloride 112 mmol/L (98-107); Potassium 3.9 mmol/L (3.5-5.1); Sodium 146 mmol/L (136-145)
[2016-05-11 09:57] LABS: BUN (Urea Nitrogen) 20 mg/dL (8.4-25.7); Calc. Creatinine Clearance 0 mL/min (70-130); Carbon Dioxide 26 mmol/L (23-31); Estimated GFR-MDRD 70; Glucose 99 mg/dL (83-110)
[2016-05-11 10:04] LABS: Anion Gap 12 mmol/L (10-20)
== END 2016-05-11 07:57 | disposition home or self-care (01) ==
LOC: NAV LABSP 07:56
PROVIDERS: ATTEND Internal Medicine
DX: E87.6 Hypokalemia (principal); G20 Parkinson's disease; I10 Essential (primary) hypertension; K21.9 Gastro-esophageal reflux disease without esophagitis
CPT/HCPCS: 36415; 80048; 83880

== ENCOUNTER 2016-07-01 07:18 | Outpatient (CLI) | payer MEDICARE ==
[2016-07-01 09:40] LABS: Anion Gap 13 mmol/L (10-20); BUN (Urea Nitrogen) 22 mg/dL (8.4-25.7); Calc. Creatinine Clearance 0 mL/min (70-130); Carbon Dioxide 23 mmol/L (23-31); Chloride 110 mmol/L (98-107); Estimated GFR-MDRD 82; Glucose 84 mg/dL (83-110); Potassium 3.8 mmol/L (3.5-5.1); Sodium 142 mmol/L (136-145)
== END 2016-07-01 07:19 | disposition home or self-care (01) ==
LOC: NAV LABSP 07:18
PROVIDERS: ATTEND Internal Medicine
DX: E87.6 Hypokalemia (principal); G20 Parkinson's disease; I10 Essential (primary) hypertension
CPT/HCPCS: 36415; 80048; 83880

== ENCOUNTER 2016-07-10 08:11 | Outpatient (CLI) | payer MEDICARE ==
[2016-07-10 10:39] LABS: ALT (SGPT) Less than 3 U/L (8-55); AST (SGOT) 12 U/L (5-34); Albumin 3.2 g/dL (3.4-4.8); Alkaline Phosphatase 53 U/L (40-150); Anion Gap 15 mmol/L (10-20); BUN (Urea Nitrogen) 22 mg/dL (8.4-25.7); Bilirubin, Total 0.9 mg/dL (0.2-1.2); Calc. Creatinine Clearance 0 mL/min (70-130); Calcium 8.5 mg/dL (7.8-10.44); Carbon Dioxide 23 mmol/L (23-31); Cardiac Risk 3.3 (Less than 4.5); Chloride 108 mmol/L (98-107); Cholesterol 133 mg/dl (< 200 Desired); Estimated GFR-MDRD 80; Globulin 2.7 g/dL (2.4-3.5); Glucose 84 mg/dL (83-110); HDL Cholesterol 40 mg/dL (>60 Neg Risk); LDL Cholesterol, Calculated 78 mg/dL; Protein, Total 5.9 g/dL (5.8-8.1); Sodium 142 mmol/L (136-145); Triglycerides 77 mg/dL (Less than 150)
[2016-07-10 14:48] LABS: Hemoglobin 12.1 g/dL (14.0-18.0); Mean Corpuscular HGB CONC 32.6 g/dL (32.0-36.0); Mean Platelet Volume 5.9 fL (7.4-10.4); Platelet Count 143 thou/uL (130-400); RBC Distribution Width 12.1 % (11.5-14.5); Red Blood Cell (RBC) Count 4.17 mill/uL (4.70-6.10); White Blood Cell (WBC) Count 6.5 thou/uL (4.8-10.8)
[2016-07-10 14:54] LABS: Eosinophils 3 % (0-10); Lymphocytes 24 % (21-51); MDiff Complete? YES; Monocytes 12 % (0-10); Neutrophil 61 % (42-75); PLT Morphology Comment Appears Adequate
== END 2016-07-10 08:12 | disposition home or self-care (01) ==
LOC: NAV LABSP 08:11
PROVIDERS: ATTEND Internal Medicine
DX: E87.6 Hypokalemia (principal); R55 Syncope and collapse; I10 Essential (primary) hypertension; K21.9 Gastro-esophageal reflux disease without esophagitis; K20.9 Esophagitis, unspecified; G20 Parkinson's disease
CPT/HCPCS: 36415; 80053; 80061; 84443; 85025

== ENCOUNTER 2016-07-11 14:08 | Inpatient (IN) | payer MEDICARE ==
[2016-07-11 14:31] LABS: Bilirubin Negative (Negative); Blood, Urine Moderate (Negative); Clarity Clear (Clear); Glucose, Urine (Dipstick) Negative (Negative); Leukocyte Negative (Negative); Nitrite Negative (Negative); Protein, Urine (Dipstick) Negative (Neg-Trace)
[2016-07-11] MEDS ORDERED: Sodium Chloride 0.9% 1,000 ML ONE ×2 (14:32→16:18)
[2016-07-11 14:59] LABS: Bacteria/HPF None Seen HPF (None Seen); Squamous Epithelial 0-3 HPF (0-3); WBC/HPF None Seen HPF (0-3)
--- NOTE | 2016-07-11 14:59 | CT ---
CT BRAIN WITHOUT CONTRAST HISTORY: Altered mental status. COMPARISON: 03/27/2016 FINDINGS: Changes or cortical atrophy and chronic small vessel ischemic disease are again seen. The ventricul ar size is stable, and the basilar cisterns are patent. No evidence of acute infarct, hemorrhage, midline shift, or abnormal extraaxial fluid collections is seen. The bony calvarium is intact. There is opacification of the sphenoid sinuses, which is new since the last study. IMPRESSION: No CT evidence of acute intracranial process. POS: [facility]
--- NOTE | 2016-07-11 15:13 | RAD ---
PORTABLE CHEST ONE VIEW 07/11/2016 3:02 PM HISTORY: Altered mental status. COMPARISON: 03/28/2016 FINDINGS: There are changes of median sternotomy. Left-sided AICD remains in place. The heart is enlarged. The aorta is tortuous. There is suggestion of a small right pleural effusion. No pneumothoraces ar e seen. There is no evidence of bakari pulmonary edema. POS: [facility]
[2016-07-11 15:18] LABS: #Basophils 0.1 thou/uL (0.0-0.2); #Eosinphils 0.1 thou/uL (0.0-0.7); #Lymphocytes 1.6 thou/uL (1.20-3.40); #Monocytes 0.6 thou/uL (0.11-0.59); #Neutrophils 4.2 thou/uL (1.40-6.50); %Basophils 1.2 % (0.0-1.0); %Eosinophils 2.1 % (0.0-10.0); %Lymphocytes 24.7 % (21.0-51.0); %Monocytes 8.5 % (0.0-10.0); %Neutrophils 63.5 % (42.0-75.0); Hemoglobin 12.3 g/dL (14.0-18.0); Mean Corpuscular HGB CONC 34.1 g/dL (32.0-36.0); Mean Corpuscular Hemoglobin 29.6 pg (27.0-31.0); Mean Corpuscular Volume 86.7 fl (80.0-94.0); Mean Platelet Volume 6.6 fL (7.4-10.4); Platelet Count 136 thou/uL (130-400); RBC Distribution Width 12.1 % (11.5-14.5); Red Blood Cell (RBC) Count 4.14 mill/uL (4.70-6.10); White Blood Cell (WBC) Count 6.6 thou/uL (4.8-10.8)
[2016-07-11 15:20] LABS: ALT (SGPT) Less than 3 U/L (8-55); AST (SGOT) 8 U/L (5-34); Alkaline Phosphatase 50 U/L (40-150); Anion Gap 14 mmol/L (10-20); BUN (Urea Nitrogen) 22 mg/dL (8.4-25.7); Bilirubin, Total 0.9 mg/dL (0.2-1.2); Calc. Creatinine Clearance 0 mL/min (70-130); Calcium 8.3 mg/dL (7.8-10.44); Carbon Dioxide 22 mmol/L (23-31); Chloride 108 mmol/L (98-107); Estimated GFR-MDRD 83; Globulin 2.6 g/dL (2.4-3.5); Glucose 106 mg/dL (83-110); Potassium 3.8 mmol/L (3.5-5.1); Protein, Total 5.6 g/dL (5.8-8.1); Sodium 140 mmol/L (136-145)
[2016-07-11 15:21] LABS: CKMB 1.1 ng/mL (0-6.6); Troponin I 0.012 ng/mL (< 0.028)
[2016-07-11] MEDS ORDERED: Aspirin 300 MG Suppository ONE (16:38)
[2016-07-11] MEDS ORDERED: Sodium Chloride 0.9% 1,000 ML IV SCH (17:15)
[2016-07-11] MEDS ORDERED: Ondansetron HCl/PF 4 MG/2 ML Vial IVP PRN (17:15)
[2016-07-11] MEDS ORDERED: Ondansetron ODT 4 MG TAB SL PRN (17:15)
[2016-07-11] MEDS ORDERED: Acetaminophen 325 MG TAB PO PRN ×2 (22:44→22:49)
[2016-07-11] MEDS ORDERED: Polyethylene Glycol 3350 17 GM Packet PO PRN (22:49)
[2016-07-11] MEDS ORDERED: Milk Of Magnesia 30 ML UDCUP PO PRN (22:49)
[2016-07-11] MEDS: Sodium Chloride 0.9% 1,000 ML IV SCH (23:07)
[2016-07-12] MEDS: Calcium Carbonate + Vit D 1 TAB PO SCH (08:17)
[2016-07-12] MEDS: Famotidine 20 MG TAB PO SCH ×2 (08:17→20:03)
[2016-07-12] MEDS: Finasteride 5 MG TAB PO SCH (08:17)
[2016-07-12] MEDS: Aspirin 325 MG TAB PO SCH (08:17)
[2016-07-12] MEDS: Docusate 100 MG CAP PO SCH ×2 (08:18→20:02)
[2016-07-12] MEDS: Carvedilol 6.25 MG TAB PO SCH ×2 (08:18→20:03)
[2016-07-12] MEDS: PARoxetine 20 MG TAB PO SCH (08:18)
[2016-07-12] MEDS: Carbidopa/Levodopa 25-100 mg Tablet PO SCH ×4 (08:21→20:03)
[2016-07-12] MEDS: Sodium Chloride 0.9% 1,000 ML IV SCH (08:25)
[2016-07-12] MEDS: Atorvastatin Calcium 10 MG TAB PO SCH (20:02)
[2016-07-13] MEDS: Aspirin 325 MG TAB PO SCH (08:24)
[2016-07-13] MEDS: Calcium Carbonate + Vit D 1 TAB PO SCH (08:24)
[2016-07-13] MEDS: Carbidopa/Levodopa 25-100 mg Tablet PO SCH ×4 (08:24→21:05)
[2016-07-13] MEDS: Docusate 100 MG CAP PO SCH ×2 (08:25→21:04)
[2016-07-13] MEDS: Carvedilol 6.25 MG TAB PO SCH ×2 (08:25→21:04)
[2016-07-13] MEDS: Famotidine 20 MG TAB PO SCH ×2 (08:25→21:04)
[2016-07-13] MEDS: Finasteride 5 MG TAB PO SCH (08:25)
[2016-07-13] MEDS: PARoxetine 20 MG TAB PO SCH (08:25)
[2016-07-13] MEDS ORDERED: Lisinopril 10 MG TAB PO SCH (09:00)
--- NOTE | 2016-07-13 10:02 | HP ---
DATE OF ADMISSION: 07/12/2016 HISTORY OF PRESENT ILLNESS: The patient is a very pleasant 86-year-old white male living at the [facility] for the last several months after he was having recurrent falls, orthostatic hypotension a t home, felt to be due to a combination of his ischemic cardiomyopathy plus new onset of Parkinson's disease with slowly progressive dementia. He has been doing fairly well at the alf, able to cooperate with therapy, but had not been getting much stronger and was not able to be discharged back to his home. This admission, however, was prompted by an episode of complete unresponsiveness, subsequent altered mental status, was seen in the emergency room and found to have a negative CT sc an and found to be somewhat weak and lethargic with no focal findings and was placed in the observat ion lorenzo. There he was found to be weak with no focal findings, but developed increased blood press ure to 190/90 despite reinstitution of his medications of carvedilol 6.25 twice daily. As mentioned above, he has had orthostatic hypotension in the past and has tolerated some mild elevation of his blood pressure, but he had symptoms with this with change in mental status and headache. It is felt that he required an increase in his blood pressure medicine and monitoring in the hospital while th is was being done. He is therefore admitted to the hospital and will be started on lisinopril in ad dition to carvedilol with orthostatic blood pressure changes and will have physical therapy consulte d again. PAST MEDICAL HISTORY: As mentioned above is remarkable for ischemic cardiomyopathy with a history o f ventricular tachycardia and is status post implantable defibrillator with no discharges. He also has a history of cancer of the colon many years ago with no recurrence, a history of chronic constip ation, well controlled on MiraLax, and a history of anxiety and depression, which has been well cont rolled on paroxetine 20 mg daily. Finally, he has a history of benign prostatic hypertrophy treated only with finasteride 5 mg daily as he had the above-mentioned orthostatic hypotension with tamsulo sin. Finally, he has taken atorvastatin 10 mg daily for hyperlipidemia. He is allergic to PENICILL IN. He is not to be resuscitated at his request. PAST SURGICAL HISTORY: Positive for the above-mentioned partial colectomy 8 years ago for cancer of the colon, defibrillator placement in 1999, and hernia repair. REVIEW OF SYSTEMS: Constitutional: Poor historian at this time. Denies most of the symptoms. SAM NT: Denies any change in vision. He has gradually decreasing hearing. Has had a gradual decrease in his vision. He has new onset of headaches as mentioned above. No hoarseness or sore throat. Pu lmonary: Denies cough, sputum production, pneumonia, asthma, tuberculosis. Cardiovascular: Denies any chest pain for several months. Denies shortness of breath, but it is not very active. His isc hemic cardiomyopathy was evaluated last year with an ejection fraction of 15%-20%. Gastrointestinal : He denies nausea, vomiting, diarrhea. Had the above-mentioned constipation, well controlled with MiraLax. Genitourinary: He has decreased stream. Has had problems with retention in the past, bu t appears to be stable on finasteride 5 daily. Musculoskeletal: Has chronic pain in his knees and back. Has been walking with a walker at the alf. MEDICATIONS: Are as above. PHYSICAL EXAMINATION: GENERAL: Patient is an elderly white male, appears weak, in no acute distress, oriented x3 and coop erative. VITAL SIGNS: Blood pressure of 190/100, this morning was 164/79, placed in the observation lorenzo, pu lse 62, temperature 96, respirations 20, and O2 sats 95%. HEENT: Pupils are equal, round, and react to light and accommodation. Sclerae are anicteric. Conj unctivae pale. Oral mucous membranes well hydrated. NECK: Supple, no nodes or masses. JVP is not elevated. Carotid shows 2+ and equal with no bruits. LUNGS: Clear. CARDIAC: Examination showed regular rhythm. No gallops or murmurs. Defibrillator in place. There is PMI in the fifth intercostal space, 1 cm left midclavicular line. ABDOMEN: Soft and nontender with no masses or organomegaly. SKIN/EXTREMITIES: Show no edema, clubbing, cyanosis. NEUROLOGIC: Shows cranial nerves intact. Deep tendon reflexes 2+ and equal. There is mild cogwhee l rigidity and minimal resting tremor. LABORATORY DATA: Show white count of 6600, hematocrit 35, and hemoglobin 12. Sodium is 140, potass ium 3.8, chloride 108, bicarbonate 22, BUN 22, creatinine 0.87, glucose 106, calcium 8.3, total bili gates 0.9, AST 8, ALT 3, total protein 5.6, albumin 3.0, CK-MB 1.1, and troponin 0.012. C-reactive protein 1.04. Lactate 1.1. ASSESSMENT AND PLAN: Elderly white male with history of ischemic cardiomyopathy on carvedilol who p resents with headache, altered mental status, and a finding of increasing blood pressure. He has thompson d a negative CT and has no focal findings, only his cogwheel rigidity and bradykinesia is from his P arkinson's disease. He will be admitted to the hospital; however, for better control of his blood p ressure while monitoring for orthostatic hypotension and this has happened in the past. He will als o have physical therapy, occupational therapy, and finally he will be continued on his prehospitaliz ation medications and hopefully will improve his strength enough to ambulate again back at the [facility] home.
[2016-07-13 11:01] VITALS: BMI 24.8
[2016-07-13] MEDS: Sodium Chloride 0.9% 1,000 ML IV SCH (13:45)
[2016-07-13] MEDS: Atorvastatin Calcium 10 MG TAB PO SCH (21:04)
[2016-07-14] MEDS: Sodium Chloride 0.9% 1,000 ML IV SCH (08:52)
[2016-07-14] MEDS: Calcium Carbonate + Vit D 1 TAB PO SCH (08:53)
[2016-07-14] MEDS: Aspirin 325 MG TAB PO SCH (08:53)
[2016-07-14] MEDS: Carvedilol 6.25 MG TAB PO SCH ×2 (08:53→20:24)
[2016-07-14] MEDS: Docusate 100 MG CAP PO SCH ×2 (08:53→20:24)
[2016-07-14] MEDS: Finasteride 5 MG TAB PO SCH (08:53)
[2016-07-14] MEDS: PARoxetine 20 MG TAB PO SCH (08:53)
[2016-07-14] MEDS: Carbidopa/Levodopa 25-100 mg Tablet PO SCH ×4 (08:54→20:25)
[2016-07-14] MEDS: Famotidine 20 MG TAB PO SCH ×2 (08:54→20:24)
[2016-07-14] MEDS: Lisinopril 20 MG TAB PO SCH (08:54)
[2016-07-14] MEDS ORDERED: Sodium Chloride 0.9% 10 ML ONE (09:03)
[2016-07-14] MEDS: Atorvastatin Calcium 10 MG TAB PO SCH (20:24)
[2016-07-15] MEDS: Sodium Chloride 0.9% 1,000 ML IV SCH (05:12)
[2016-07-15] MEDS: Docusate 100 MG CAP PO SCH ×2 (08:20→21:06)
[2016-07-15] MEDS: Famotidine 20 MG TAB PO SCH ×2 (08:20→21:06)
[2016-07-15] MEDS: Aspirin 325 MG TAB PO SCH (08:20)
[2016-07-15] MEDS: PARoxetine 20 MG TAB PO SCH (08:20)
[2016-07-15] MEDS: Finasteride 5 MG TAB PO SCH (08:20)
[2016-07-15] MEDS: Carvedilol 6.25 MG TAB PO SCH ×2 (08:20→16:27)
[2016-07-15] MEDS: Calcium Carbonate + Vit D 1 TAB PO SCH (08:21)
[2016-07-15] MEDS: Lisinopril 20 MG TAB PO SCH (08:21)
[2016-07-15] MEDS: Carbidopa/Levodopa 25-100 mg Tablet PO SCH ×4 (08:21→21:06)
--- NOTE | 2016-07-15 11:07 | PRG ---
DATE OF SERVICE: 07/14/2016 SUBJECTIVE: The patient lying in bed, states he feels better, he is more awake and alert but is sti ll very weak and unable to maintain activities of daily living, unable to get out of bed and is havi ng poor appetite. OBJECTIVE: VITAL SIGNS: Temperature 96.1, pulse 63, respirations 22, O2 sats 95%, blood pressure 179/86. LUNGS: Clear. CARDIAC: Regular rhythm. ABDOMEN: Soft and nontender. SKIN AND EXTREMITIES: Show no edema, clubbing, cyanosis. NEUROLOGICAL: Shows diffuse weakness with some diffuse rigidity. Intake and output shows 1316 in, 3 wet diapers. The patient was seen by physical therapy and evalua lakisha and felt to be a candidate for strengthening as unable to maintain ADLs and therefore has been s tarted on therapy. ASSESSMENT: An 86-year-old white male with a history of hypertension, congestive heart failure, cor onary artery disease who presents with weakness, no evidence of acute ischemia who has been felt to require physical therapy and therefore has been started on physical therapy. He is also on IV fluid s. Continue this for another day as the patient is still not eating well and will stress oral intak e. Will restart back on home medications.
--- NOTE | 2016-07-15 11:18 | PRG ---
DATE OF SERVICE: 07/15/2016 SUBJECTIVE: The patient feels well, more alert, he has been cooperating with therapy, but still sta darren he is not eating well and is still very weak. OBJECTIVE: Blood pressure is up to 190/100, temperature 96, pulse 63, respirations 22, O2 saturatio n 95%. Lungs clear. Cardiac examination shows regular rhythm. Skin and extremities show 1+ edema. The patient is cooperating with therapy, but is walking 50 feet, 80 feet several times, but with r esting, having to require resting after 5 minutes. ASSESSMENT: 1. Significant deconditioning, slowly improving with therapy. 2. Increasing edema on IV fluids. 3. Persistent poor appetite. 4. Stable hypertension. PLAN: Discontinue IV fluids, stress oral intake. Continue physical therapy. May need appetite sti mulant.
[2016-07-15] MEDS: Atorvastatin Calcium 10 MG TAB PO SCH (21:05)
[2016-07-16] MEDS: Calcium Carbonate + Vit D 1 TAB PO SCH (08:23)
[2016-07-16] MEDS: Docusate 100 MG CAP PO SCH ×2 (08:23→21:08)
[2016-07-16] MEDS: Lisinopril 20 MG TAB PO SCH (08:23)
[2016-07-16] MEDS: PARoxetine 20 MG TAB PO SCH (08:23)
[2016-07-16] MEDS: Carbidopa/Levodopa 25-100 mg Tablet PO SCH ×4 (08:23→21:08)
[2016-07-16] MEDS: Famotidine 20 MG TAB PO SCH ×2 (08:23→21:08)
[2016-07-16] MEDS: Aspirin 325 MG TAB PO SCH (08:23)
[2016-07-16] MEDS: Finasteride 5 MG TAB PO SCH (08:24)
[2016-07-16] MEDS: Carvedilol 6.25 MG TAB PO SCH ×2 (08:24→17:06)
--- NOTE | 2016-07-16 08:51 | PRG ---
DATE OF SERVICE: 07/16/2016 SUBJECTIVE: The patient is lying in the bed, states that he feels better, but still not eating well . He did not cooperate with therapy and appears more alert today. OBJECTIVE: Vital signs showed blood pressure is 183/88, 182/100, O2 sats 94%, respirations 18, puls e 63, afebrile. Lungs are clear. Cardiac examination showed regular rhythm. Abdomen is soft and n ontender. Neurological shows no focal findings. Diffuse weakness and some rigidity. ASSESSMENT: 1. Persistent hypertension. 2. No focal findings only diffuse weakness, confusion. 3. Significant Parkinson's disease with rigidity, but cooperating with therapy. 4. Ischemic cardiomyopathy, no evidence of decompensation at this time. PLAN: Add amlodipine 2.5 mg at night and monitor blood pressure. Discuss physical therapy with the rapist and if qualifies a swing for physical therapy. Stress need to increase oral intake.
[2016-07-16] MEDS: Atorvastatin Calcium 10 MG TAB PO SCH (21:08)
[2016-07-17 07:09] VITALS: TEMP 97.8
[2016-07-17] MEDS: Lisinopril 20 MG TAB PO SCH (08:22)
[2016-07-17] MEDS: Carvedilol 6.25 MG TAB PO SCH ×2 (08:23→08:24)
[2016-07-17] MEDS: Docusate 100 MG CAP PO SCH (08:23)
[2016-07-17] MEDS: Calcium Carbonate + Vit D 1 TAB PO SCH (08:23)
[2016-07-17] MEDS: Finasteride 5 MG TAB PO SCH (08:23)
[2016-07-17] MEDS: Aspirin 325 MG TAB PO SCH (08:23)
[2016-07-17] MEDS: Famotidine 20 MG TAB PO SCH (08:24)
[2016-07-17] MEDS: PARoxetine 20 MG TAB PO SCH (08:24)
[2016-07-17] MEDS: Carbidopa/Levodopa 25-100 mg Tablet PO SCH (08:25)
[2016-07-17 10:52] VITALS: BP 162/79
--- NOTE | 2016-07-20 09:48 | DIS ---
DATE OF ADMISSION: 07/13/2016 DATE OF DISCHARGE: 07/17/2016 FINAL DIAGNOSES: 1. Severe weakness. 2. Progressive Parkinson's disease. 3. Stable ischemic cardiomyopathy. 4. Labile hypertension. HOSPITAL COURSE: The patient is an 86-year-old white male with a long history of progressive Salena son's disease with ischemic cardiomyopathy and dementia, who was found to be somewhat altered in the hospital and very weak. He was seen in the emergency room and found to have a negative CT scan, no focal findings, but has significant increase in his blood pressure 190/90. Therefore, he was admit lakisha to the hospital for monitoring his blood pressure, he was restarted back on his home medications of carvedilol 6.25 twice daily. Blood pressure normalized. He also started on lisinopril 10 mg rafi oropeza. His initial laboratories were normal including a lactate of 1.1, BUN 22, creatinine 0.87, hemo globin 12, hematocrit 35. Neurological showed no focal findings. He slowly but surely returned to his baseline and mental status, over the next 18 hours, he began to eat better. He is felt to be ve ry weak, but his appetite increased. He was seen by physical therapy who felt that he had maintaine d his maximum status as he was able to transfer walk with a shuffling gait, but still was unsafe to be monitored at home and he was felt to require to go back to the group home and continue on thera py. He did have amlodipine 2.5 mg added at night which did control his blood pressure very well. H e was continued back on his carvedilol 6.25 twice daily, Paxil 20 daily, potassium 10 daily, atorvas tatin 10 nightly, docusate 100 twice daily, MiraLax 17 grams every other day, aspirin 325 daily, Sin emet 25/250 four times daily, lisinopril 20 daily was added, amlodipine 2.5 daily was added, finaste ride 5 daily was added, famotidine 20 twice daily was added. He was monitored for orthostatic hypot ension did not occur. His admission will be monitored at the group home.
== END 2016-07-17 11:00 | DRG 292 ==
LOC: NAV ERS 14:08 → NAV ACUTE 17:18 → OBSVTOIN 07-13 08:21
PROVIDERS: ADMIT Internal Medicine; ATTEND Internal Medicine
DX: I11.0 Hypertensive heart disease with heart failure (principal); R47.01 Aphasia; G20 Parkinson's disease; F02.80 Dementia in other diseases classified elsewhere, unspecified severity, without behavioral disturbance, psychotic disturbance, mood disturbance, and anxiety; I95.1 Orthostatic hypotension; Z95.810 Presence of automatic (implantable) cardiac defibrillator; E78.5 Hyperlipidemia, unspecified; Z85.038 Personal history of other malignant neoplasm of large intestine; M19.90 Unspecified osteoarthritis, unspecified site; I25.10 Atherosclerotic heart disease of native coronary artery without angina pectoris; Z87.891 Personal history of nicotine dependence; Z66 Do not resuscitate; I25.5 Ischemic cardiomyopathy; K59.00 Constipation, unspecified; F41.9 Anxiety disorder, unspecified; F32.9 Major depressive disorder, single episode, unspecified; I50.9 Heart failure, unspecified
CPT/HCPCS: 36415; 51701; 70450; 71010; 80053; 81003; 81015; 82553; 83605; 84484; 85025; 86140; 93005; 96360; A4216; G8978-GP-CK; G8979-GP-CJ; J7050

== ENCOUNTER 2016-08-27 07:04 | Outpatient (CLI) | payer MEDICARE ==
[2016-08-27 07:46] LABS: Anion Gap 12 mmol/L (10-20); BUN (Urea Nitrogen) 24 mg/dL (8.4-25.7); Calc. Creatinine Clearance 0 mL/min (70-130); Carbon Dioxide 24 mmol/L (23-31); Chloride 110 mmol/L (98-107); Estimated GFR-MDRD 83; Glucose 85 mg/dL (83-110); Potassium 3.8 mmol/L (3.5-5.1); Sodium 142 mmol/L (136-145)
== END 2016-08-27 07:05 | disposition home or self-care (01) ==
LOC: NAV LABSP 07:04
PROVIDERS: ATTEND Internal Medicine
DX: E87.6 Hypokalemia (principal); I10 Essential (primary) hypertension; G20 Parkinson's disease
CPT/HCPCS: 36415; 80048; 83880

== ENCOUNTER 2016-09-15 11:09 | Outpatient (CLI) | payer MEDICARE ==
[2016-09-15 18:25] LABS: Anion Gap 15 mmol/L (10-20); BUN (Urea Nitrogen) 21 mg/dL (8.4-25.7); Calc. Creatinine Clearance 0 mL/min (70-130); Calcium 8.2 mg/dL (7.8-10.44); Carbon Dioxide 23 mmol/L (23-31); Chloride 111 mmol/L (98-107); Estimated GFR-MDRD 86; Glucose 91 mg/dL (83-110); Sodium 145 mmol/L (136-145)
== END 2016-09-15 11:10 | disposition home or self-care (01) ==
LOC: NAV LABSP 11:09
PROVIDERS: ATTEND Internal Medicine
DX: E78.6 Lipoprotein deficiency (principal); G20 Parkinson's disease; I10 Essential (primary) hypertension
CPT/HCPCS: 36415; 80048; 83880

== ENCOUNTER 2016-09-25 18:16 | Inpatient (IN) | payer MEDICARE ==
[2016-09-25] MEDS ORDERED: Acetaminophen 500 MG TAB PO PRN (18:39)
[2016-09-25 19:04] VITALS: BMI 23.7
--- NOTE | 2016-09-25 19:13 | RAD ---
EXAM: ONE VIEW CHEST 09/25/16 COMPARISON: 07/11/16 HISTORY: Aspiration, dyspnea. FINDINGS: Portable upright chest demonstrates a left sided transvenous defibrillator. Evaluation of lead posit ion is limited due to underpenetration. No obvious change in lead position. Sternotomy wires are ignacia ntified. There is atherosclerosis of the aorta. The heart is enlarged. Pulmonary vessels are within normal limits. Small right sided pleural effusion with adjacent parenchymal changes is suspected. Th ere is no definite pneumothorax. Mild hyperinflation suspected. IMPRESSION: Small right sided pleural effusion. POS: [facility]
[2016-09-25] MEDS: D5 1/4 NS 1,000 ML IV SCH (19:50)
[2016-09-25 20:19] LABS: #Basophils 0.1 thou/uL (0.0-0.2); #Eosinphils 0.2 thou/uL (0.0-0.7); #Monocytes 0.4 thou/uL (0.11-0.59); %Basophils 0.9 % (0.0-1.0); %Eosinophils 2.9 % (0.0-10.0); %Lymphocytes 17.3 % (21.0-51.0); %Monocytes 7.1 % (0.0-10.0); %Neutrophils 71.8 % (42.0-75.0); Hemoglobin 11.2 g/dL (14.0-18.0); Mean Corpuscular HGB CONC 32.4 g/dL (32.0-36.0); Mean Corpuscular Hemoglobin 28.8 pg (27.0-31.0); Mean Corpuscular Volume 88.9 fl (80.0-94.0); Mean Platelet Volume 6.7 fL (7.4-10.4); Platelet Count 105 thou/uL (130-400); RBC Distribution Width 12.8 % (11.5-14.5); Red Blood Cell (RBC) Count 3.89 mill/uL (4.70-6.10); White Blood Cell (WBC) Count 5.6 thou/uL (4.8-10.8)
[2016-09-25 20:24] LABS: ALT (SGPT) Less than 3 U/L (8-55); AST (SGOT) 9 U/L (5-34); Albumin 2.8 g/dL (3.4-4.8); Alkaline Phosphatase 48 U/L (40-150); Anion Gap 10 mmol/L (10-20); BUN (Urea Nitrogen) 26 mg/dL (8.4-25.7); Calc. Creatinine Clearance 57 mL/min (70-130); Calcium 8.3 mg/dL (7.8-10.44); Carbon Dioxide 26 mmol/L (23-31); Chloride 108 mmol/L (98-107); Estimated GFR-MDRD 73; Globulin 2.4 g/dL (2.4-3.5); Glucose 133 mg/dL (83-110); Potassium 3.8 mmol/L (3.5-5.1); Protein, Total 5.2 g/dL (5.8-8.1); Sodium 140 mmol/L (136-145)
[2016-09-25] MEDS: Atorvastatin Calcium 10 MG TAB PO SCH (20:52)
[2016-09-25] MEDS: Docusate 100 MG CAP PO SCH (20:52)
[2016-09-25] MEDS: Famotidine/PF 20 mg/2ml Vial SLOW IVP SCH (20:52)
[2016-09-25 22:47] LABS: Bilirubin Negative (Negative); Blood, Urine Trace (Negative); Clarity Clear (Clear); Glucose, Urine (Dipstick) Negative (Negative); Icto Negative (Negative); Leukocyte Negative (Negative); Nitrite Negative (Negative); Protein, Urine (Dipstick) 30 mg/dL (Neg-Trace); Specific Gravity, Urine 1.025 (1.005-1.030); Urobilinogen 0.2 mg/dL (0.2-1.0); pH, Urine 5.5 (5.0-9.0)
[2016-09-25 22:48] LABS: Bacteria/HPF None Seen HPF (None Seen); RBC/HPF 0-3 HPF (0-3); Squamous Epithelial 0-3 HPF (0-3); WBC/HPF None Seen HPF (0-3)
[2016-09-25] MEDS: Carbidopa/Levodopa 10-100 mg Tablet PO SCH (23:53)
--- NOTE | 2016-09-26 00:03 | HP ---
DATE OF ADMISSION: 09/25/2016 HISTORY OF PRESENT ILLNESS: The patient is a very pleasant 86-year-old white male, well known to my self with multiple medical problems, living at a snf because of progressive weakness and sl owly progressive dementia secondary to his Parkinson disease. He has been unable to maintain his AD Ls and he has fallen multiple times. While at the snf, he initially was doing better, but then over the last week has developed increasing cough, some congestion, shortness of breath, chokin g, and dyspnea. He was found to have a low grade temperature. He had a chest x-ray at the hospital at the snf, which was read out as possible right lower lobe infiltrate; therefore, on exam ination was found to have rhonchi anteriorly and decreased breath sounds. It felt that he was possi tia having recurrent aspiration as he states he choked more after he was eating; therefore, he was a dmitted to the hospital for evaluation and treatment of possible recurrent aspiration and pneumonia. As mentioned above, he does have a history of significant comorbidities of ischemic cardiomyopathy , history of ventricular tachycardia, and is status post automatic implantable defibrillator. [facility], he has had no discharges since implantation several years ago. He also has a history of benign prostatic hypertrophy treated with finasteride with occasional problems with urinary tract infection s, but with orthostatic hypotension when treated with an alpha antagonist. He also has had a histor y of anxiety and depression, doing very well on medications. PAST MEDICAL HISTORY: History of cancer of the colon, status post partial colectomy, 8 years ago wi th no recurrence. PAST SURGICAL HISTORY: Also positive for hernia repair as well as a partial colectomy and defibrill ator placement. SOCIAL HISTORY: As mentioned above, he is still to his of many years, who also lives i n the snf. He is a nonsmoker, nondrinker. ALLERGIES: He does have an allergy to PENICILLIN. REVIEW OF SYSTEMS: HEENT: He has gradually decreasing hearing. He has mild change in his vision. He has no hoarseness or sore throat. Pulmonary: He does have occasional cough with no sputum prod uction, has noticed no wheezing, but has had significant dyspnea at times and choking. Cardiovascul ar: He has denied any chest pain, palpitations, orthopnea, paroxysmal nocturnal dyspnea, or edema. Gastrointestinal: He denies nausea, vomiting, diarrhea. He does have chronic constipation, but wh ich is well controlled on MiraLax and docusate. Genitourinary: He denies dysuria, hematuria. Does have decreased stream fairly well controlled with his finasteride. Musculoskeletal: He has the ab ove-mentioned diffuse weakness and shuffling gait and rigidity from Parkinson disease caused him to have a fall risk, but has not fallen recently. Neurologic: He has the above-mentioned tremor, rigi dity of Parkinson disease. He has no previous history of CVA, localized numbness, weakness in arms or extremities. PHYSICAL EXAMINATION: GENERAL: Patient is an elderly white male, is very weak, but alert, oriented, in no distress. VITAL SIGNS: Showing him to have blood pressure of 127/73, O2 sat is 92% on room air, respirations 20, pulse 63, is afebrile at 98.9. HEENT: Pupils are equal, round, and react to light and accommodation. Sclerae are anicteric. Conj unctivae pale. Oral mucous membranes dehydrated. NECK: Supple. There are no nodes or masses. JVPs are not elevated. LUNGS: Show a few diffuse rhonchi, worse in the bases on the right side. CARDIAC EXAMINATION: Shows regular rhythm, S4, occasional extrasystole. S4 gallop or murmurs. ABDOMEN: Soft and nontender with no masses or organomegaly. SKIN/EXTREMITIES: Display no edema, clubbing, or cyanosis. NEUROLOGICAL: Shows diffuse weakness. Patient is unable to stand or sit without assistance. There is minimal rigidity and resting tremor. There was no numbness or tingling in arms or legs. Crania l nerves appear to be intact. LABORATORY DATA: Chest x-ray does show small right pleural effusion, but no infiltrates here in the hospital. Other laboratories are still pending. ASSESSMENT AND PLAN: The patient is an 86-year-old white male with a history of Parkinson disease, who presents with increased cough, congestion, and possibly recurrent aspiration and choking sensati on, and he does appear to have persistent Parkinson disease treatment with Sinemet. We will therefo re consult speech. We will treat for possible aspiration pneumonia with hand held nebulizer with Du oNeb and Levaquin. We will continue him on his previous Sinemet dose. His ischemic cardiomyopathy appears to be stable with no evidence of decompensation. He will be continued on his prehospitaliza tion medications of carvedilol 6.25 twice daily and lisinopril 20 daily. He will also have DVT prop hylaxis with Lovenox and stress ulcer prophylaxis with famotidine. His prognosis is somewhat guarde d and he is not to be resuscitated.
[2016-09-26] MEDS: Enoxaparin Sodium 30 MG/0.3 ML SYRINGE SC SCH (05:25)
[2016-09-26] MEDS: Carbidopa/Levodopa 10-100 mg Tablet PO SCH ×3 (05:25→17:29)
[2016-09-26] MEDS: Famotidine/PF 20 mg/2ml Vial SLOW IVP SCH ×3 (08:26→21:01)
[2016-09-26] MEDS: Docusate 100 MG CAP PO SCH ×3 (08:26→21:01)
[2016-09-26] MEDS: Potassium Chloride 10 MEQ TAB PO SCH ×2 (08:26→09:13)
[2016-09-26] MEDS: Aspirin 325 mg Enteric Coated Tablet PO SCH ×2 (08:26→09:13)
[2016-09-26] MEDS: Carvedilol 6.25 MG TAB PO SCH ×3 (08:26→17:29)
[2016-09-26] MEDS: PARoxetine 20 MG TAB PO SCH ×2 (08:27→09:14)
[2016-09-26] MEDS: Polyethylene Glycol 3350 17 GM Packet PO SCH ×2 (08:27→09:14)
[2016-09-26] MEDS: Lisinopril 20 MG TAB PO SCH ×2 (08:27→09:14)
[2016-09-26] MEDS: D5 1/4 NS 1,000 ML IV SCH (10:40)
[2016-09-26] MEDS: Pantoprazole 40 MG GRANULES PACKET PO SCH (21:01)
[2016-09-26] MEDS: Atorvastatin Calcium 10 MG TAB PO SCH (21:01)
[2016-09-27] MEDS: Carbidopa/Levodopa 10-100 mg Tablet PO SCH ×4 (00:24→17:22)
[2016-09-27 05:22] LABS: #Eosinphils 0.2 thou/uL (0.0-0.7); #Lymphocytes 0.9 thou/uL (1.20-3.40); #Monocytes 0.4 thou/uL (0.11-0.59); %Basophils 0.8 % (0.0-1.0); %Eosinophils 4.6 % (0.0-10.0); %Lymphocytes 18.6 % (21.0-51.0); %Monocytes 9.7 % (0.0-10.0); %Neutrophils 66.4 % (42.0-75.0); Hemoglobin 11.2 g/dL (14.0-18.0); Mean Corpuscular HGB CONC 33.5 g/dL (32.0-36.0); Mean Corpuscular Hemoglobin 29.4 pg (27.0-31.0); Mean Corpuscular Volume 87.7 fl (80.0-94.0); Mean Platelet Volume 6.9 fL (7.4-10.4); PLT Morphology Comment Appears Decreased; Platelet Count 102 thou/uL (130-400); RBC Distribution Width 12.8 % (11.5-14.5); RBC Morphology Normal; Red Blood Cell (RBC) Count 3.83 mill/uL (4.70-6.10); White Blood Cell (WBC) Count 4.6 thou/uL (4.8-10.8)
[2016-09-27 05:25] LABS: MDiff Complete? YES; Manual Diff?? NO
[2016-09-27 05:40] LABS: Anion Gap 8 mmol/L (10-20); BUN (Urea Nitrogen) 17 mg/dL (8.4-25.7); Calc. Creatinine Clearance 63 mL/min (70-130); Calcium 8.1 mg/dL (7.8-10.44); Carbon Dioxide 29 mmol/L (23-31); Chloride 105 mmol/L (98-107); Estimated GFR-MDRD 82; Glucose 107 mg/dL (83-110); Potassium 3.7 mmol/L (3.5-5.1); Sodium 138 mmol/L (136-145)
[2016-09-27] MEDS: Enoxaparin Sodium 30 MG/0.3 ML SYRINGE SC SCH (06:09)
[2016-09-27] MEDS: Carvedilol 6.25 MG TAB PO SCH ×2 (08:27→17:21)
[2016-09-27] MEDS: Potassium Chloride 10 MEQ TAB PO SCH (08:27)
[2016-09-27] MEDS: Aspirin 325 mg Enteric Coated Tablet PO SCH (08:28)
[2016-09-27] MEDS: Docusate 100 MG CAP PO SCH ×2 (08:28→20:52)
[2016-09-27] MEDS: Famotidine/PF 20 mg/2ml Vial SLOW IVP SCH ×2 (08:28→20:52)
[2016-09-27] MEDS: Lisinopril 20 MG TAB PO SCH (08:28)
[2016-09-27] MEDS: PARoxetine 20 MG TAB PO SCH (08:29)
[2016-09-27] MEDS: Polyethylene Glycol 3350 17 GM Packet PO SCH (08:29)
[2016-09-27] MEDS: D5 1/4 NS 1,000 ML IV SCH ×2 (11:50→12:59)
[2016-09-27] MEDS: Atorvastatin Calcium 10 MG TAB PO SCH (20:52)
[2016-09-27] MEDS: Pantoprazole 40 MG GRANULES PACKET PO SCH (20:52)
[2016-09-28] MEDS: Carbidopa/Levodopa 10-100 mg Tablet PO SCH ×4 (00:26→17:40)
--- NOTE | 2016-09-28 01:21 | PRG ---
DATE OF SERVICE: 09/27/2016 HISTORY OF PRESENT ILLNESS: Mr. Garcia is a very pleasant 86-year-old white male admitted from the intermediate to the hospital with possible pneumonia. The patient was seen by miguel ángel Erickson and placed on IV antibiotics. SUBJECTIVE: The patient states he feels much better. He states his cough is getting better. He st ates he cough for about 3 nights in a row all day and all night and did not get any rest. He states he rested much better last night. He has been coughing a lot less, although he still is having eva e cough. He has no complaints today. He states he does not believe that he had fever or chills tod ay. PHYSICAL EXAMINATION: VITAL SIGNS: Reveal blood pressure 165/83, pulse 65-69, respirations 18-20, O2 sat 95% on 2 liters, T-max is 97.8. GENERAL: This is a well-developed, well-nourished, elderly white male, in no apparent distress at t his time. He has had coughing about every 5-10 minutes. HEENT: Reveals normocephalic, nontraumatic cranium. Pupils are equally round and reactive. Extrao cular movements intact. Nose and throat are slightly dry, but clear. NECK: Supple, without masses, nodes or bruits. CHEST: Reveals coarse breath sounds, but no rales or rhonchi or wheezes are heard today. CARDIOVASCULAR: Reveals a regular rate and rhythm with S4. ABDOMEN: Soft, nontender, without organomegaly. Normal bowel sounds are noted. No rebound or guar ding is noted. : Deferred. EXTREMITIES: Reveal no clubbing, cyanosis, or edema. The patient has significant weakness. IMPRESSION: 1. Possible pneumonia/bronchitis. 2. Parkinson disease. 3. Possible aspiration. 4. Hypertension. 5. Ischemic cardiomyopathy. 6. History of ventricular tachycardia status post automated implantable cardioverter defibrillator. PLAN: 1. Continue present medications. 2. Continue hand held nebs if needed. 3. Continue present blood pressure medications. 4. Continue carbidopa/levodopa q.6h. scheduled. 5. Continue D5 quarter normal saline at 50 mL an hour.
[2016-09-28] MEDS: Enoxaparin Sodium 30 MG/0.3 ML SYRINGE SC SCH (06:14)
[2016-09-28] MEDS: D5 1/4 NS 1,000 ML IV SCH (07:59)
[2016-09-28] MEDS: Famotidine/PF 20 mg/2ml Vial SLOW IVP SCH ×2 (07:59→20:41)
[2016-09-28] MEDS: Polyethylene Glycol 3350 17 GM Packet PO SCH (08:00)
[2016-09-28] MEDS: Docusate 100 MG CAP PO SCH ×2 (08:01→20:42)
[2016-09-28] MEDS: PARoxetine 20 MG TAB PO SCH (08:01)
[2016-09-28] MEDS: Potassium Chloride 10 MEQ TAB PO SCH (08:01)
[2016-09-28] MEDS: Aspirin 325 mg Enteric Coated Tablet PO SCH (08:02)
[2016-09-28] MEDS: Lisinopril 20 MG TAB PO SCH (08:02)
[2016-09-28] MEDS: Carvedilol 6.25 MG TAB PO SCH ×2 (08:02→17:40)
--- NOTE | 2016-09-28 12:15 | PRG ---
DATE OF SERVICE: 09/28/2016 SUBJECTIVE: The patient is sitting in the chair working with Occupational Therapy, doing much nichole r with only cough at night time, but no shortness of breath or cough during the day and increasing s trength. He has seen by Speech Therapy, states that he appears to have occasional problems with roxane id food, but did handle a mechanical soft diet very well and we will continue on that recommendation . OBJECTIVE: Vital signs show him to have a blood pressure 170/80, temperature 97, pulse 68, respirat ions 16, O2 sats 95% on 2 liters. It was 98% on my examination. Blood pressure did drop to 124/80 upon standing, but with no symptoms. Lungs did show a few rhonchi in the left lung with deep inspir ation with a few coarse breath sounds. Skin and extremities showed no edema, clubbing, cyanosis. C ardiac examination showed regular rhythm. ASSESSMENT: 1. Resolving chronic bronchitis and possible recurrent aspiration on mechanical soft diet. 2. Significant weakness from Parkinson disease with inability to walk with a walker as he had done previously. 3. Hypertension with orthostasis, stable at this time and continue on the same medication. PLAN: 1. Start physical therapy. 2. Stop oxygen, monitor O2 sats 3. Continue mechanical soft diet. 4. Continue handheld nebulizer and oral antibiotics. 5. Start prednisone 40 mg daily for the next several days and then decrease to 20 mg daily.
[2016-09-28] MEDS ORDERED: Sodium Chloride 0.9% 10 ML ONE (12:49)
[2016-09-28] MEDS: Pantoprazole 40 MG GRANULES PACKET PO SCH (20:41)
[2016-09-28] MEDS: Atorvastatin Calcium 10 MG TAB PO SCH (20:42)
[2016-09-29] MEDS: D5 1/4 NS 1,000 ML IV SCH (00:34)
[2016-09-29] MEDS: Carbidopa/Levodopa 10-100 mg Tablet PO SCH ×4 (00:34→17:19)
[2016-09-29] MEDS: Enoxaparin Sodium 30 MG/0.3 ML SYRINGE SC SCH (05:59)
--- NOTE | 2016-09-29 07:47 | PRG ---
DATE OF SERVICE: 09/29/2016 SUBJECTIVE: The patient feels much better. Still states he had some cough last night although nurs es state that he slept well through the night. It was very weak, but did take few steps in the room today, having no shortness of breath at rest or chest pain, increasing appetite. OBJECTIVE: VITAL SIGNS: Shows blood pressure is 165/84, temperature is 95.9, pulse 64, respirations 18, and O2 saturation is 95%. LUNGS: Clear. CARDIAC: Examination showed regular rhythm. No gallops or murmurs. ABDOMEN: Soft, nontender. SKIN AND EXTREMITIES: Showed no edema. ASSESSMENT: 1. Resolving cough, possible, mild aspiration on mechanical soft diet. 2. Resolving exacerbation of chronic obstructive pulmonary disease, on Levaquin. 3. Increasing oral nutrition. 4. Increasing conditioning although still severely weak and unable to maintain activities of daily living. PLAN: Discontinue IV fluids. Continue IV Levaquin. Continue mechanical soft diet. Continue PT/OT . Continue handheld nebulizers.
[2016-09-29] MEDS ORDERED: Sodium Chloride 0.9% 10 ML ONE (07:48)
[2016-09-29] MEDS: Polyethylene Glycol 3350 17 GM Packet PO SCH (08:13)
[2016-09-29] MEDS: Famotidine/PF 20 mg/2ml Vial SLOW IVP SCH ×2 (08:13→20:58)
[2016-09-29] MEDS: PARoxetine 20 MG TAB PO SCH (08:14)
[2016-09-29] MEDS: Docusate 100 MG CAP PO SCH ×2 (08:14→20:59)
[2016-09-29] MEDS: Lisinopril 20 MG TAB PO SCH (08:14)
[2016-09-29] MEDS: predniSONE 20 MG TAB PO SCH (08:15)
[2016-09-29] MEDS: Potassium Chloride 10 MEQ TAB PO SCH (08:15)
[2016-09-29] MEDS: Aspirin 325 mg Enteric Coated Tablet PO SCH (08:15)
[2016-09-29] MEDS: Carvedilol 6.25 MG TAB PO SCH ×2 (08:17→16:58)
[2016-09-29] MEDS: Atorvastatin Calcium 10 MG TAB PO SCH (20:59)
[2016-09-30] MEDS: Carbidopa/Levodopa 10-100 mg Tablet PO SCH ×4 (00:12→17:56)
[2016-09-30] MEDS: Enoxaparin Sodium 30 MG/0.3 ML SYRINGE SC SCH (06:05)
--- NOTE | 2016-09-30 07:39 | PRG ---
DATE OF SERVICE: 09/30/2016 SUBJECTIVE: The patient feels well with no cough last night, slept well with no difficulty, no shor tness of breath. He has been eating well. He is working with therapy in the last 2 days and yester day walked 150 feet and 75 feet with a rolling walker. OBJECTIVE: LUNGS: Clear. CARDIAC: Examination shows regular rhythm. ABDOMEN: Soft and nontender. VITAL SIGNS: Pulse is 64, temperature 96.8, respirations 18, O2 sats 97% on half a liter, blood pre ssure 120/69. ASSESSMENT: 1. Resolving chronic obstructive pulmonary disease with exacerbation, possible pneumonia. 2. Resolving aspiration on mechanical soft diet. 3. Improving deconditioning. PLAN: Discontinue oxygen. Change Levaquin to 500 p.o. daily. Continue PT. Possible discharge herminia orrow or the next day.
[2016-09-30] MEDS ORDERED: Sodium Chloride 0.9% 10 ML ONE (08:13)
[2016-09-30] MEDS: Carvedilol 6.25 MG TAB PO SCH ×2 (08:39→17:56)
[2016-09-30] MEDS: Potassium Chloride 10 MEQ TAB PO SCH (08:40)
[2016-09-30] MEDS: predniSONE 20 MG TAB PO SCH (08:40)
[2016-09-30] MEDS: Docusate 100 MG CAP PO SCH ×2 (08:42→21:42)
[2016-09-30] MEDS: Aspirin 325 mg Enteric Coated Tablet PO SCH (08:42)
[2016-09-30] MEDS: Lisinopril 20 MG TAB PO SCH (08:42)
[2016-09-30] MEDS: Famotidine/PF 20 mg/2ml Vial SLOW IVP SCH ×2 (08:42→21:42)
[2016-09-30] MEDS: Polyethylene Glycol 3350 17 GM Packet PO SCH (08:43)
[2016-09-30] MEDS: PARoxetine 20 MG TAB PO SCH (08:43)
[2016-09-30] MEDS: Atorvastatin Calcium 10 MG TAB PO SCH (21:42)
[2016-10-01] MEDS: Carbidopa/Levodopa 10-100 mg Tablet PO SCH ×4 (02:10→16:54)
[2016-10-01] MEDS: Enoxaparin Sodium 30 MG/0.3 ML SYRINGE SC SCH (05:44)
[2016-10-01] MEDS: Lisinopril 20 MG TAB PO SCH (08:01)
[2016-10-01] MEDS: Polyethylene Glycol 3350 17 GM Packet PO SCH (08:01)
[2016-10-01] MEDS: Carvedilol 6.25 MG TAB PO SCH ×2 (08:01→16:54)
[2016-10-01] MEDS: PARoxetine 20 MG TAB PO SCH (08:02)
[2016-10-01] MEDS: Aspirin 325 mg Enteric Coated Tablet PO SCH (08:02)
[2016-10-01] MEDS: Famotidine/PF 20 mg/2ml Vial SLOW IVP SCH ×2 (08:03→21:03)
[2016-10-01] MEDS: Docusate 100 MG CAP PO SCH ×2 (08:03→21:04)
[2016-10-01] MEDS: Potassium Chloride 10 MEQ TAB PO SCH (08:03)
[2016-10-01] MEDS: predniSONE 20 MG TAB PO SCH (08:03)
[2016-10-01] MEDS ORDERED: Sodium Chloride 0.9% 10 ML ONE (20:33)
[2016-10-01] MEDS: Atorvastatin Calcium 10 MG TAB PO SCH (21:04)
[2016-10-02] MEDS: Carbidopa/Levodopa 10-100 mg Tablet PO SCH ×3 (00:02→13:06)
[2016-10-02] MEDS: Enoxaparin Sodium 30 MG/0.3 ML SYRINGE SC SCH (05:47)
[2016-10-02] MEDS: Famotidine/PF 20 mg/2ml Vial SLOW IVP SCH (08:58)
[2016-10-02] MEDS ORDERED: Sodium Chloride 0.9% 10 ML ONE (09:00)
[2016-10-02] MEDS: PARoxetine 20 MG TAB PO SCH (09:03)
[2016-10-02] MEDS: Aspirin 325 mg Enteric Coated Tablet PO SCH (09:03)
[2016-10-02] MEDS: Docusate 100 MG CAP PO SCH (09:03)
[2016-10-02] MEDS: Lisinopril 20 MG TAB PO SCH (09:03)
[2016-10-02] MEDS: Carvedilol 6.25 MG TAB PO SCH (09:04)
[2016-10-02] MEDS: predniSONE 20 MG TAB PO SCH (09:04)
[2016-10-02] MEDS: Polyethylene Glycol 3350 17 GM Packet PO SCH (09:04)
[2016-10-02] MEDS: Potassium Chloride 10 MEQ TAB PO SCH (09:04)
[2016-10-02 14:26] VITALS: BP 112/64; TEMP 95.7
--- NOTE | 2016-10-02 15:50 | PRG ---
DATE OF SERVICE: 10/01/2016 SUBJECTIVE: The patient feels well, lying in bed, resting with no complaints, eating well with mini mal cough, no shortness of breath, no pain. OBJECTIVE: VITAL SIGNS: Show blood pressure of 102/60, pulse 79, O2 sat is 98% on 1 liter. LUNGS: Show only a few rhonchi. CARDIAC: Shows regular rhythm. ABDOMEN: Soft and nontender. ASSESSMENT: 1. Resolving chronic obstructive pulmonary disease with bronchitis. 2. No evidence for recurrent aspiration. 3. Improving deconditioning. 4. Stable Parkinson's disease. PLAN: Continue PT, OT. Continue on oral antibiotics, nebulizers. Probable discharge is tomorrow.
--- NOTE | 2016-10-03 01:16 | DIS ---
DATE OF ADMISSION: 09/25/2016 DATE OF DISCHARGE: 10/02/2016 FINAL DIAGNOSES: 1. Chronic obstructive pulmonary disease with exacerbation. 2. Possible aspiration. 3. Stable Parkinson's disease. 4. Deconditioning, improved greatly. 5. Coronary artery disease with no evidence of recurrent angina. 6. Congestive heart failure. HOSPITAL COURSE: The patient is a very pleasant 86-year-old white male living at the residential w ith a long history of congestive heart failure, coronary artery disease, and recent history of slowl y progressive Parkinson's disease, making him significantly weak, who has developed recurrent cough, some shortness of breath, possible aspiration. Chest x-ray showed no infiltrates, but did have dif fuse rhonchi, rales was seen by Speech, and was placed on mechanical soft diet, appeared to be doing better, continued on handheld nebulizer, DuoNeb, but also was started on IV Levaquin, appeared to s lowly but surely improved. We will switch to oral Levaquin, was ambulating with PT, OT. Stated haydee t he was safe to transfer and was walking 170 feet and was felt to be stable to be transferred back to residential. He was therefore transferred back on oral Levaquin for 3 more days. Continued on his handheld nebulizers. Continued on his prehospitalization medications of carvedilol 6.25 twice d aily, lisinopril 20 daily, and we will be continued on PT at the residential.
== END 2016-10-02 17:21 | DRG 178 ==
LOC: NAV ACUTE 18:16
PROVIDERS: ADMIT Internal Medicine; ATTEND Internal Medicine
DX: J69.0 Pneumonitis due to inhalation of food and vomit (principal); J44.1 Chronic obstructive pulmonary disease with (acute) exacerbation; G20 Parkinson's disease; I11.0 Hypertensive heart disease with heart failure; I50.9 Heart failure, unspecified; I25.5 Ischemic cardiomyopathy; Z85.038 Personal history of other malignant neoplasm of large intestine; Z88.0 Allergy status to penicillin; Z95.810 Presence of automatic (implantable) cardiac defibrillator; I25.10 Atherosclerotic heart disease of native coronary artery without angina pectoris; F41.9 Anxiety disorder, unspecified; F32.9 Major depressive disorder, single episode, unspecified
CPT/HCPCS: 36415; 71010; 80048; 80053; 81001; 85025; A4216; G8996-GN-CK; G8997-GN-CK; G8998-GN-CK; J1650; J1956; J7042; J7506; S0028

== ENCOUNTER 2016-10-05 08:05 | Outpatient (CLI) | payer MEDICARE ==
[2016-10-05 09:05] LABS: Anion Gap 11 mmol/L (10-20); BUN (Urea Nitrogen) 32 mg/dL (8.4-25.7); Calc. Creatinine Clearance 0 mL/min (70-130); Calcium 8.1 mg/dL (7.8-10.44); Carbon Dioxide 26 mmol/L (23-31); Chloride 107 mmol/L (98-107); Estimated GFR-MDRD 72; Glucose 87 mg/dL (83-110); Sodium 140 mmol/L (136-145)
== END 2016-10-05 08:06 | disposition home or self-care (01) ==
LOC: NAV LABSP 08:05
PROVIDERS: ATTEND Internal Medicine
DX: E87.6 Hypokalemia (principal)
CPT/HCPCS: 36415; 80048; 83880

== ENCOUNTER 2016-10-22 12:53 | Outpatient (CLI) | payer MEDICARE ==
[2016-10-22 14:20] LABS: Anion Gap 10 mmol/L (10-20); BUN (Urea Nitrogen) 24 mg/dL (8.4-25.7); Calc. Creatinine Clearance 0 mL/min (70-130); Calcium 8.3 mg/dL (7.8-10.44); Carbon Dioxide 29 mmol/L (23-31); Chloride 108 mmol/L (98-107); Estimated GFR-MDRD 82; Glucose 67 mg/dL (83-110); Sodium 143 mmol/L (136-145)
== END 2016-10-22 12:54 | disposition home or self-care (01) ==
LOC: NAV LABSP 12:53
PROVIDERS: ATTEND Internal Medicine
DX: G20 Parkinson's disease (principal); E87.6 Hypokalemia; I10 Essential (primary) hypertension
CPT/HCPCS: 36415; 80048; 83880

== ENCOUNTER 2017-01-26 12:27 | Outpatient (CLI) | payer MEDICARE, OTHER | END 2017-01-26 12:28 | disposition home or self-care (01) | LOC: NAV NNR 12:27 | PROVIDERS: ATTEND Internal Medicine | DX: J11.1 Influenza due to unidentified influenza virus with other respiratory manifestations (principal) ==